=== PATIENT | female | born 1965 | race Caucasian/White ===

== ENCOUNTER 2022-03-15 10:31 | Emergency (ER) | payer BC, SELFPAY ==
[2022-03-15 10:31] VITALS: BP 120/61; PULSE 82; RESP 16; TEMP 37.1; O2SAT 98; BMI 36.6
--- NOTE | 2022-03-15 10:40 | HMH.EDGENADL ---
ED Disposition Clinical Impression: Edema of right upper extremity Disposition: Home, Self-Care Condition on Discharge: Good Additional Instructions: Elevate right arm to reduce swelling. Follow-up with Dr. Avilez this week. Referrals: Tyler Avilez MD [Primary Care Provider] - - Critical Care Critical Care Time: No Attestation: On , the high probability of a clinically significant, sudden or life threatening deterioration of the following system(s) required my full and direct attention, intervention and personal management. The time I documented below is in addition to time spent performing reported procedures but includes the following listed in this critical care notation. Medical Decision Making - Alin Inquiry Pt receiving controlled substance: No Vital Signs: 03/15/22 10:31 03/15/22 11:01 03/15/22 11:46 Temperature 98.8 F 98 F Temperature Source Oral Oral Pulse Rate 79 78 Pulse Rate [Radial] 82 Respiratory Rate 16 16 16 Blood Pressure 127/51 L 144/89 H Blood Pressure [Right Arm] 120/61 Blood Pressure Mean 81 Blood Pressure Mean [Right Arm] 80 Blood Pressure Position Sitting Blood Pressure Position [Right Arm] Sitting 02 Sat by Pulse Oximetry 98 93 L Oxygen Delivery Method Room Air Room Air 03/15/22 12:00 03/15/22 13:46 03/15/22 14:03 Temperature Temperature Source Pulse Rate 79 76 84 Pulse Rate [Radial] Respiratory Rate 16 16 16 Blood Pressure 132/78 141/63 H 162/90 H Blood Pressure [Right Arm] Blood Pressure Mean 96 96 98 Blood Pressure Mean [Right Arm] Blood Pressure Position Blood Pressure Position [Right Arm] 02 Sat by Pulse Oximetry 97 98 98 Oxygen Delivery Method - Lab Data Lab Results 03/15/22 11:26: WBC 9.7, RBC 4.52, Hgb 13.6, Hct 41.9, MCV 92.7, MCH 30.1, MCHC 32.5, RDW 14.1, Plt Count 319, MPV 8.1, Neut % (Auto) 76.0, Lymph % (Auto) 18.0, [place] % (Auto) 4.8, Eos % (Auto) 0.5, Baso % (Auto) 0.7, Neut # (Auto) 7.4, Lymph # (Auto) 1.7, [place] # (Auto) 0.5, Eos # (Auto) 0.1, Baso # (Auto) 0.1 03/15/22 11:26: D-Dimer 0.85 H 03/15/22 11:26: Sodium 143, Potassium 4.1, Chloride 110 H, Carbon Dioxide 27, Anion Gap 10.1, BUN 12, Creatinine 1.20 H, Estimated Creat Clear 83, Estimated GFR 47 L, Est GFR ( Amer) 56 L, Glucose 208 H, Calcium 10.5 H, Total Bilirubin 0.2, AST 28, ALT 26, Alkaline Phosphatase 164 H, NT-Pro-B Natriuret Pep 55.8, Total Protein 7.2, Albumin 3.9, Globulin 3.3 H, Albumin/Globulin Ratio 1.2 03/15/22 11:26: Total Creatine Kinase 29 L, CK-MB (CK-2) < 0.2, CK-MB (CK-2) Rel Index 0.7, Troponin I < 0.01 Result diagrams: 03/15/22 11:26 03/15/22 11:26 - Radiology Data #1 Image(s): Chest, Humerus, Forearm, Wrist, Hand Image Reviewed: Yes I reviewed the patient's radiology image, Yes I have reviewed radiologist's interpretation Preliminary interpretation by me: Chest x-ray: No acute disease Humerus, forearm, wrist, hand: No fractures or dislocations. Degenerative changes with osteophytes at the elbow. No effusion seen. 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 Views: 2 views. COMPARISON: CR XR HUMERUS RT 03/15/2022 11:08 AM FINDINGS: Lungs: Unremarkable. No consolidation. Pleural spaces: Unremarkable. No pleural effusion. No pneumothorax. Heart/Mediastinum: Unremarkable. No cardiomegaly. Bones/joints: Unremarkable. IMPRESSION: No acute findings. 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
--- NOTE | 2022-03-15 10:45 | PC.NURSE ---
RT RADIAL PULSE STRONG, CAP REFILL BRISK, SKIN PINK WARM TO TOUCH
--- NOTE | 2022-03-15 10:46 | XR_ITS ---
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 Views: 3 or more views. COMPARISON: No relevant prior studies available. FINDINGS: Bones/joints: Mild narrowing at the level of the 2nd through 5th PIP and DIP joints. Soft tissues: Mild soft tissue swelling dorsal aspect of the hand. IMPRESSION: 1. No evidence of acute osseous injury. 2. Mild degenerative arthritic type changes 2nd through 5th PIP and DIP joints.
--- NOTE | 2022-03-15 10:47 | XR_ITS ---
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 Views: 3 or more views. COMPARISON: No relevant prior studies available. FINDINGS: Bones/joints: Normal. Soft tissues: Mild soft tissue swelling dorsal aspect of the wrist. IMPRESSION: No evidence of acute osseous injury.
--- NOTE | 2022-03-15 10:55 | XR_ITS ---
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 Views: 2 or more views. COMPARISON: No relevant prior studies available. FINDINGS: Bones/joints: Normal. Soft tissues: Normal. IMPRESSION: No evidence of acute osseous injury.
--- NOTE | 2022-03-15 10:55 | XR_ITS ---
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 Views: 2 views. COMPARISON: No relevant prior studies available. FINDINGS: Bones/joints: Incomplete visualization of focus of calcification adjacent to the radial head. Findings may reflect chronic posttraumatic change. Soft tissues: Soft tissue swelling at the level of the mid forearm with continuation to the level of the wrist. IMPRESSION: 1. No evidence of acute osseous injury. 2. Diffuse soft tissue swelling as described above.
--- NOTE | 2022-03-15 10:56 | XR_ITS ---
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 Views: 2 views. COMPARISON: CR XR HUMERUS RT 03/15/2022 11:08 AM FINDINGS: Lungs: Unremarkable. No consolidation. Pleural spaces: Unremarkable. No pleural effusion. No pneumothorax. Heart/Mediastinum: Unremarkable. No cardiomegaly. Bones/joints: Unremarkable. IMPRESSION: No acute findings.
--- NOTE | 2022-03-15 10:57 | PC.NURSE ---
Rad at bedside
[2022-03-15 11:01] VITALS: BP 127/51; PULSE 79; RESP 16; O2SAT 93
--- NOTE | 2022-03-15 11:28 | PC.NURSE ---
PT TO XRAY PER WHEELCHAIR
[2022-03-15 11:35] LABS: Basophils # 0.1 K/mm3 (0-0.2); Basophils % 0.7 % (0.1-2.0); Eosinophils # 0.1 K/mm3 (0.0-0.4); Eosinophils % 0.5 % (0.1-12.0); Hematocrit 41.9 % (37.0-47.0); Hemoglobin 13.6 g/dL (12.2-16.2); Lymphocytes # 1.7 K/mm3 (0.7-4.5); Mean Corpuscular HGB Conc 32.5 g/dL (31.8-35.4); Mean Corpuscular Hemoglobin 30.1 pg (27.0-31.2); Mean Corpuscular Volume 92.7 fl (81-99); Mean Platelet Volume 8.1 fl (7.4-10.4); Monocytes # 0.5 K/mm3 (0.1-1.0); Monocytes % 4.8 % (1.7-9.3); Neutrophils # 7.4 K/mm3 (1.8-7.8); Platelet Count 319 K/mm3 (142-424); Red Blood Count 4.52 M/mm3 (4.20-5.40); Red Cell Distribution Width 14.1 % (11.5-17.5); White Blood Count 9.7 K/mm3 (4.8-10.8)
[2022-03-15 11:42] LABS: Creatine Kinase 29 U/L (30-135)
[2022-03-15 11:43] LABS: Alanine Aminotransferase 26 U/L (12-78); Albumin Level 3.9 g/dl (3.5-5.0); Albumin/Globulin Ratio 1.2 (1.1-1.8); Alkaline Phosphatase 164 U/L (38-126); Anion Gap 10.1 mEq/L (5-15); Aspartate Amino Transferase 28 U/L (14-36); Bilirubin,Total 0.2 mg/dl (0.2-1.3); Blood Urea Nitrogen 12 mg/dl (7-17); Calcium 10.5 mg/dl (8.4-10.2); Carbon Dioxide 27 mmol/L (22.0-30.0); Chloride 110 mmol/L (98-107); Creatinine Clearance Estimated 83 mL/min (50-200); Estimated Glomerular Filt Rate 47 ml/min (>60); GFR (African American) 56 ML/MIN (>60); Globulin 3.3 g/dL (1.3-3.2); Glucose 208 mg/dl (74-100); Potassium 4.1 mmoL/L (3.5-5.1); Sodium 143 mmol/L (136-145); Total Protein,Serum 7.2 g/dl (6.3-8.2)
[2022-03-15 11:46] VITALS: BP 144/89; PULSE 78; RESP 16; TEMP 36.6; O2SAT 98
[2022-03-15 11:48] LABS: D-Dimer 0.85 ug/mL (0.0-0.5)
[2022-03-15 11:54] LABS: NT Pro Brain Natriuretic Pep. 55.8 pg/mL (0-125)
[2022-03-15 11:59] LABS: CKMB Relative Index 0.7 U/L (0-4.0); Creatine Kinase MB < 0.2 ng/ml (0.0-2.03); Troponin I < 0.01 ng/ml (0.00-0.034)
[2022-03-15 12:00] VITALS: BP 132/78; PULSE 79; RESP 16; O2SAT 97
--- NOTE | 2022-03-15 12:03 | ECG_ITS ---
APPROVED REPORT Exam: Resting ECG HR:77 bpm ECG Measurements Heart Rate 77 AXES [place] 179 P 50 QRSd 96 QRS 8 QT 380 T 0 QTc 411 Conclusion SINUS RHYTHM LOW QRS VOLTAGE IN PRECORDIAL LEADS [QRS DEFLECTION < 1.0 mV IN CHEST LEADS] Poor r wave progression ABNORMAL ECG UNCONFIRMED REPORT Electronically signed by : Star Marino MD 03/16/2022 14:30:11
--- NOTE | 2022-03-15 12:15 | PC.NURSE ---
PT GIVEN DIET TRAY
--- NOTE | 2022-03-15 12:33 | PC.NURSE ---
histopath tech called and advised that she will be here to the facility in approx 1 hr to perform venous doppler.
--- NOTE | 2022-03-15 12:44 | PC.NURSE ---
SPOKE WITH PT'S SISTER (POA) AND GAVE UPDATE
--- NOTE | 2022-03-15 12:56 | CA_ITS ---
FINAL REPORT TECHNIQUE: Sonographic images of the veins of the right upper extremity were obtained from axilla to antecubital fossa. Additionally, images of the internal jugular vein and subclavian vein were also obtained. CLINICAL HISTORY: swelling R arm, elev d-dimer, no known trauma. Right hand swelling since yesterday. DM, obesity. Patient AMS and uncooperative. Scanning was limited due to limited cooperation and comprehension. FINDINGS: The veins of the right upper extremity are compressible from axilla to antecubital fossa. Blood flow is demonstrated by both color and spectral Doppler as well. The internal jugular vein and subclavian vein are also patent. IMPRESSION: Technically limited exam due to limited patient cooperation. No evidence of venous thrombosis of the the right upper extremity. Reviewed, Interpreted and Dictated by Javier Shankar III, MD Transcribed by Shannan Manzanares Authenticated and [facility]
[2022-03-15 13:46] VITALS: BP 141/63; PULSE 76; RESP 16; O2SAT 98
--- NOTE | 2022-03-15 14:01 | PC.NURSE ---
ULTRASOUND AT BEDSIDE
[2022-03-15 14:03] VITALS: BP 162/90; PULSE 84; RESP 16; O2SAT 98
--- NOTE | 2022-03-15 14:22 | PC.NURSE ---
ECHO RELAYED THE PT WAS NEGATIVE OF CLOT
--- NOTE | 2022-03-15 14:27 | PC.NURSE ---
PAGED DR CORONA
--- NOTE | 2022-03-15 14:34 | PC.NURSE ---
ARGELIA SPeaking to francesca at his time
--- NOTE | 2022-03-15 14:51 | PC.NURSE ---
SPOKE WITH PT'S SISTER REGARDING TEST RESULTS
--- NOTE | 2022-03-15 14:57 | PC.NURSE ---
CALLED [facility] TO LET THEM KNOW PT IS READY FOR DISCHARGE. SHE STATED SHE WOULD CALL [facility] TO SEE IF THEY CAN PICK HER UP BECAUSE THEY ARE UNABLE TO AT THIS TIME. THEY WILL CALL BACK AND LET US KNOW.
--- NOTE | 2022-03-15 15:16 | PC.NURSE ---
emily gutierrez is here pedro sadler'mihir
== END 2022-03-15 15:22 | disposition home or self-care (01) ==
PROVIDERS: Emergency Provider Emergency Medicine; PCP Emergency Medicine
DX: R60.0 Localized edema (principal); M79.641 Pain in right hand
CPT/HCPCS: 71046; 73060; 73090; 73110; 73130; 80053; 82550; 82553; 83880; 84484; 85025; 85378; 93005; 93971; 99284

== ENCOUNTER 2022-04-20 18:49 | Inpatient (IN) | payer BC, SELFPAY ==
--- NOTE | 2022-04-20 19:04 | HMH.EDGENADL ---
Discharge Plan Disposition Patient Disposition: Admitted As Inpatient Condition: Good Clinical Impressions Clinical Impression: Delirium due to general medical condition, UTI (urinary tract infection), SIRS (systemic inflammatory response syndrome), Diabetes 1.5, managed as type 2, Obesity, Bipolar 1 disorder Discharge ED Provider: Bruno Salgado General Adult HPI <Bruno Salgado MD - Last Filed: 04/25/22 08:11> General Chief complaint: Altered Mental Status Stated complaint: ams Time Seen by Provider: 04/20/22 19:05 Mode of Arrival: EMS Limitations: Altered Mental Status History of Present Illness HPI narrative: 56-year-old female from assisted living facility presents with report of altered mental status. History is limited from the patient due to altered mental status, she seems somewhat listless, awakens and responds appropriately to name but does not answer other questions. I am not aware of her baseline mental status EMS not available to relay further history as told by the facility. She does not exhibit any clear focal deficits, onset of symptoms is not known. There were no treatments prior to this visit Related Data Home Medications Medication Instructions Recorded Confirmed amlodipine 5 mg tablet (Norvasc) 5 mg PO DAILY blood pressure 04/21/22 04/21/22 benztropine 1 mg tablet 1 mg PO DAILY Tremors 04/21/22 04/21/22 benztropine 2 mg tablet 2 mg PO HS Tremors 04/21/22 04/21/22 cyanocobalamin (vitamin B-12) 500 500 mcg PO DAILY Supplement 04/21/22 04/21/22 mcg tablet dulaglutide 1.5 mg/0.5 mL 1.5 mg SQ WEEKLY Diabetes 04/21/22 04/21/22 subcutaneous pen injector (Trulicity) ergocalciferol (vitamin D2) 1,250 50,000 unit PO WEEKLY Supplement 04/21/22 04/21/22 mcg (50,000 unit) capsule (Vitamin D2) fluvoxamine 100 mg tablet 100 mg PO TID ocd/depression 04/21/22 04/21/22 glipizide 5 mg tablet 5 mg PO BID Diabetes 04/21/22 04/21/22 haloperidol 10 mg tablet 10 mg PO TID depression/behavior 04/21/22 04/21/22 lithium carbonate 150 mg capsule 150 mg PO BID mood 04/21/22 04/21/22 loratadine 10 mg tablet (Claritin) 10 mg PO DAILY Allergy symptoms 04/21/22 04/21/22 melatonin 10 mg capsule 10 mg PO HS PRN Sleep 04/21/22 04/21/22 metformin 500 mg tablet 500 mg PO DAILY Diabetes 04/21/22 04/21/22 metoprolol tartrate 25 mg tablet 25 mg PO BID blood pressure 04/21/22 04/21/22 olanzapine 20 mg tablet 20 mg PO HS mood 04/21/22 04/21/22 omega-3 fatty acids 2,000 mg PO BID Cholesterol 04/21/22 04/21/22 trazodone 100 mg tablet 100 mg PO HS sleep 04/21/22 04/21/22 Previous Rx's Medication Instructions Recorded lorazepam 0.5 mg tablet (Ativan) 0.5 mg PO BID #60 tabs 04/07/22 cefdinir 300 mg capsule 300 mg PO BID 12 days #24 caps 04/23/22 Allergies Allergy/AdvReac Type Severity Reaction Status Date / Time bee venom protein (honey bee) Allergy Verified 03/15/22 10:46 honey Allergy Verified 03/15/22 10:46 <Tyler Avilez MD - Last Filed: 04/20/22 23:07> General Source of Information: Patient, EMS and Medical Record History of Present Illness Onset (ago): hour(s) Severity: moderate PFSH <Bruno Salgado MD - Last Filed: 04/25/22 08:11> PFSH Social History Smoking Status: Current some day smoker alcohol intake: never current occupational status: unemployed Travel in the last 8 weeks: None <Brnuo Salgado MD - Last Filed: 04/25/22 08:11> ROS Obtained: Yes unobtainable due to mental status Physical Exam <Bruno Salgado MD - Last Filed: 04/25/22 08:11> General General appearance: in no apparent distress Head Head exam: atraumatic and normocephalic Eye Eye exam: Present normal appearance and PERRL ENT ENT exam: Present normal exam Neck Neck exam: Present normal inspection Chest Chest inspection: Present normal inspection and symmetric chest wall rise Respiratory Respiratory exam: Present normal lung sounds bilaterally; Absent respiratory
--- NOTE | 2022-04-20 19:05 | XR_ITS ---
PROCEDURE INFORMATION: Exam: XR Chest Exam date and time: 04/20/2022 7:42 PM Age: 56 years old Clinical indication: Shortness of breath; Additional info: Sob/cp TECHNIQUE: Imaging protocol: Radiologic exam of the chest. Views: 1 view. COMPARISON: CR XR CHEST 2V 03/15/2022 11:33 AM FINDINGS: Lungs: Hazy density left lung base. Pleural spaces: Unremarkable. No pleural effusion. No pneumothorax. Heart/Mediastinum: Unremarkable. No cardiomegaly. Bones/joints: Unremarkable. IMPRESSION: Left pleural effusion.
--- NOTE | 2022-04-20 19:07 | CT_ITS ---
PROCEDURE INFORMATION: Exam: CT Head Without Contrast Exam date and time: 04/20/2022 7:22 PM Age: 56 years old Clinical indication: Altered mental status/memory loss; Additional info: AMS TECHNIQUE: Imaging protocol: Computed tomography of the head without contrast. Radiation optimization: All CT scans at this facility use at least one of these dose optimization techniques: automated exposure control; mA and/or kV adjustment per patient size (includes targeted exams where dose is matched to clinical indication); or iterative reconstruction. COMPARISON: No relevant prior studies available. FINDINGS: Brain: Normal. No hemorrhage. Unremarkable white matter. No mass effect. Cerebral ventricles: No ventriculomegaly. Paranasal sinuses: Mucosal thickening. No fluid levels. Mastoid air cells: Visualized mastoid air cells are well aerated. Bones/joints: Unremarkable. No acute fracture. Soft tissues: Unremarkable. IMPRESSION: No acute intracranial abnormality.
--- NOTE | 2022-04-20 19:40 | ECG_ITS ---
APPROVED REPORT Exam: Resting ECG HR:105 bpm ECG Measurements Heart Rate 105 AXES [place] 162 P 58 QRSd 90 QRS 63 QT 337 T 0 QTc 398 Conclusion SINUS TACHYCARDIA POSSIBLE RIGHT VENTRICULAR CONDUCTION DELAY [RSR (QR) IN V1/V2] NONSPECIFIC T-WAVE ABNORMALITY ABNORMAL RHYTHM ECG UNCONFIRMED REPORT Electronically signed by : Star aMrino MD 04/21/2022 21:09:13
[2022-04-20 19:55] VITALS: BP 124/84; PULSE 125; RESP 24; TEMP 39.7; O2SAT 97; BMI 34.9
[2022-04-20 20:12] VITALS: BMI 36.0
[2022-04-20 20:35] LABS: Coronavirus 19, PCR Not Detected (NotDetected); Influenza A, PCR Not Detected (NotDetected); Influenza B, PCR Not Detected (NotDetected)
[2022-04-20 20:48] LABS: Basophils # 0.2 K/mm3 (0-0.2); Basophils % 0.8 % (0.1-2.0); Eosinophils # 0.2 K/mm3 (0.0-0.4); Eosinophils % 0.7 % (0.1-12.0); Hematocrit 36.2 % (37.0-47.0); Hemoglobin 12.2 g/dL (12.2-16.2); Lymphocytes # 1.1 K/mm3 (0.7-4.5); Lymphocytes % 5.3 % (10-50); Mean Corpuscular HGB Conc 33.7 g/dL (31.8-35.4); Mean Corpuscular Hemoglobin 30.1 pg (27.0-31.2); Mean Corpuscular Volume 89.3 fl (81-99); Mean Platelet Volume 8.7 fl (7.4-10.4); Monocytes # 1.1 K/mm3 (0.1-1.0); Monocytes % 5.5 % (1.7-9.3); Neutrophils # 17.5 K/mm3 (1.8-7.8); Neutrophils % 87.6 % (37.0-80.0); Platelet Count 376 K/mm3 (142-424); Red Blood Count 4.05 M/mm3 (4.20-5.40); Red Cell Distribution Width 13.6 % (11.5-17.5); White Blood Count 19.9 K/mm3 (4.8-10.8)
[2022-04-20 20:51] LABS: MANUAL DIFFERENTIAL MANUAL DIFFERENTIAL (MANUAL DIFF)
[2022-04-20 20:53] LABS: Microscopic, Urine URINE MICROSCOPIC (MICROSCOPIC)
--- NOTE | 2022-04-20 20:54 | PC.NURSE ---
PATIENT VERY CONFUSED AND UNABLE TO FOLLOW COMMANDS, MULTIPLE ATTEMPTS TO GET UP. PATIENT MOVED TO ROOM 6 TO BE VIEWED BY STAFF.
[2022-04-20 20:55] LABS: Appearance,Urine CLOUDY (Clear); Bilirubin,Urine Negative (Negative); Blood, Urine Negative (Negative); Color,Urine YELLOW (Yellow); Glucose,Urine (UA) Negative (Negative); Ketones,Urine Negative (Negative); Leukocyte Esterase,Urine 1+ (Negative); Nitrate,Urine Negative (Negative); Protein,Urine 1+ (Negative); Specific Gravity, Urine 1.015 (1.005-1.030)
[2022-04-20 20:56] LABS: Chloride 105 mmol/L (98-107)
[2022-04-20 20:57] LABS: Potassium 4.4 mmoL/L (3.5-5.1); Sodium 141 mmol/L (136-145)
[2022-04-20 20:59] LABS: Alanine Aminotransferase 27 U/L (12-78); Alkaline Phosphatase 144 U/L (38-126); Ammonia 21 umol/L (9-30); Anion Gap 15.4 mEq/L (5-15); Aspartate Amino Transferase 36 U/L (14-36); Bilirubin,Total 0.6 mg/dl (0.2-1.3); Blood Urea Nitrogen 28 mg/dl (7-17); Carbon Dioxide 25 mmol/L (22.0-30.0); Creatinine Clearance Estimated 65 mL/min (50-200); Estimated Glomerular Filt Rate 33 ml/min (>60); GFR (African American) 40 ML/MIN (>60)
[2022-04-20 21:00] LABS: Albumin/Globulin Ratio 1.1 (1.1-1.8); Globulin 3.8 g/dL (1.3-3.2); Glucose 242 mg/dl (74-100); Total Protein,Serum 7.8 g/dl (6.3-8.2)
--- NOTE | 2022-04-20 21:15 | CT_ITS ---
PROCEDURE INFORMATION: Exam: CT Abdomen And Pelvis With Contrast Exam date and time: 04/20/2022 9:32 PM Age: 56 years old Clinical indication: Abdominal tenderness and other: Foul urine; Additional info: Foul urine, abd tender TECHNIQUE: Imaging protocol: Computed tomography of the abdomen and pelvis with contrast. Radiation optimization: All CT scans at this facility use at least one of these dose optimization techniques: automated exposure control; mA and/or kV adjustment per patient size (includes targeted exams where dose is matched to clinical indication); or iterative reconstruction. Contrast material: ISOVUE; Contrast volume: 75 ml; Contrast route: IV; COMPARISON: CR XR CHEST PORTABLE 04/20/2022 7:42 PM FINDINGS: Heart: Heart is enlarged. Coronary artery calcifications. Diaphragm: Sliding hiatal hernia. Liver: Normal. No mass. Gallbladder and bile ducts: Gallbladder is surgically absent. No pathologic dilation of the biliary tree. Pancreas: Normal. No ductal dilation. Spleen: Spleen is enlarged measuring over 13.5 cm in length but without focal lesion. Adrenal glands: Normal. No mass. Kidneys and ureters: Normal. No hydronephrosis. Stomach and bowel: Excessive stool within the transverse and right hemicolon. Appendix: No evidence of appendicitis. Intraperitoneal space: Unremarkable. No free air. No significant fluid collection. Vasculature: Unremarkable. No abdominal aortic aneurysm. Lymph nodes: Unremarkable. No enlarged lymph nodes. Urinary bladder: A Roblero catheter is present within the urinary bladder. Air within the urinary bladder could be due to recent instrumentation or gas-forming bacteria. Mucosal thickening in the urinary bladder suggests chronic infectious or interstitial cystitis with malignancy to be excluded. Follow-up cystoscopy is recommended. Reproductive: Unremarkable as visualized. Bones/joints: Skeletal structures are negative for a evidence of aggressive process or acute fracture. There are diffuse degenerative changes. Soft tissues: Unremarkable. IMPRESSION: 1. A Roblero catheter is present within the urinary bladder. Air within the urinary bladder could be due to recent instrumentation or gas-forming bacteria. Mucosal thickening in the urinary bladder suggests chronic infectious or interstitial cystitis with malignancy to be excluded. Follow-up cystoscopy is recommended. 2. Excessive stool within the transverse and right hemicolon. 3. Spleen is enlarged measuring over 13.5 cm in length but without focal lesion. 4. Gallbladder is surgically absent. No pathologic dilation of the biliary tree. 5. Cardiomegaly and coronary artery calcifications. 6. Sliding hiatal hernia.
--- NOTE | 2022-04-20 21:15 | XR_ITS ---
PROCEDURE INFORMATION: Exam: XR Chest Exam date and time: 04/20/2022 9:54 PM Age: 56 years old Clinical indication: Fever TECHNIQUE: Imaging protocol: Radiologic exam of the chest. Views: 1 view. COMPARISON: CR XR CHEST PORTABLE 04/20/2022 7:42 PM FINDINGS: Lungs: Unremarkable. No consolidation. Pleural spaces: Unremarkable. No pleural effusion. No pneumothorax. Heart/Mediastinum: Heart is enlarged. Bones/joints: Acromioclavicular arthropathy. IMPRESSION: Cardiomegaly without evidence of acute cardiopulmonary process.
[2022-04-20 21:17] LABS: Troponin I < 0.01 ng/ml (0.00-0.034)
[2022-04-20 21:52] LABS: Lactic Acid 1.7 mmol/L (0.7-2.1)
[2022-04-20 21:53] LABS: Hemoglobin A1C 6.4 % (4.0-6.0)
[2022-04-20 21:55] LABS: Bacteria,Urine 4+ /lpf
[2022-04-20 22:15] LABS: Lymphocytes % 11 % (10-50); Monocytes % 4 % (2-9); Neutrophils % 85 % (42-76); Ovalocytes 1+; Platelet Estimate Normal; Total Cells Counted 100
--- NOTE | 2022-04-20 22:23 | PC.NURSE ---
pt's family called, gave update on pt's POC and admission
--- NOTE | 2022-04-20 22:56 | PC.NURSE ---
PATIENT ADMITTED TO [address] HIGGINS WITH DX OF UTI.
[2022-04-20 23:18] VITALS: BMI 65.2
[2022-04-20 23:51] LABS: Troponin I < 0.01 ng/ml (0.00-0.034)
--- NOTE | 2022-04-20 23:55 | PC.NURSE ---
PT ARRIVED TO FLOOR VIA STRETCHER AT THIS TIME
[2022-04-21] VITALS: BP 125/58; PULSE 97; RESP 18; TEMP 37.3; O2SAT 94
--- NOTE | 2022-04-21 00:05 | CA_ITS ---
APPROVED REPORT EXAM: Comprehensive 2D, Doppler, and color-flow Echocardiogram Auto Claim Representative: Karla Miller, RT(R) Ht: 5 ft 7 in Wt: 230lbs BSA: 2.15 BP: 124/84 mmHg Indications: cardiomegaly, murmur, AMS, bipolar, UTI, febrile, patient uncooperative limited scan. 2D Dimensions LVOT 2.08 cm (M/F) 1.5-2.5 M-Mode Dimensions RVDd 2.32 cm (0.9-2.6) LA Diam 2.10 cm (1.9-4.0) LVDd 4.40 cm (3.5-5.7) Ao Diam 2.79 cm (2.0-3.7) LVDs 3.15 cm (3.5-5.7) IVSd 1.00 cm (0.6-1.1) PWd 0.64 cm (0.6-1.1) EF (Teich) 55.10% FS 28.40% EDV (Teich) 87.70 mL ESV (Teich) 39.40 mL LV Diastology E Decel Time 150.00 (160-240 msec) E/A Ratio 0.8 Mitral Valve MV E Max Fabian. 73.00 (40-130 cm/s) MV A Velocity 88.00 (40-130 cm/s) E/A Ratio 0.83 MV Decel. Time 150.00 (160-240 ms) MV PHT 44.00 ms Left Ventricle Left atrium is normal size, left ventricle is normal size, estimated ejection fraction 55% with no regional wall motion abnormality, Doppler evidence of impaired LV relaxation seen. Right Ventricle Right atrium and right ventricle are normal size and contractility. Aortic Valve Aortic valve is not well visualized, Doppler is not indicated for aortic stenosis aortic insufficiency. Mitral Valve Mitral valve grossly normal and there is trace mitral regurgitation. Tricuspid Valve Tricuspid valve grossly normal, there is trace tricuspid regurgitation, tricuspid regurgitation jet velocity is inadequate for calculation of the right ventricular systolic pressure. Pulmonic Valve Pulmonic valve is poorly visualized. Great Vessels Aortic root is normal size. Inferior vena cava is poorly visualized. Pericardium No significant pericardial effusion noted. Conclusion 1. Technically difficult study because of the patient factors and poor acoustic windows. 2. Normal left ventricular size preserved left ventricular systolic function, estimated ejection fraction 55% with no regional wall motion abnormality, Doppler evidence of impaired relaxation seen. 3. Trace mitral and tricuspid regurgitation. 4. No significant pericardial effusion. 5. Inferior vena cava is poorly visualized. Electronically signed by : Gabriel Mohan MD 04/21/2022 18:21:42
[2022-04-21 00:46] VITALS: BP 120/81; PULSE 73; RESP 16; TEMP 36.6; O2SAT 99
[2022-04-21 04:00] VITALS: BP 128/63; PULSE 97; RESP 18; TEMP 36.9; O2SAT 90
--- NOTE | 2022-04-21 04:19 | PC.NURSE ---
pt was admitted this shift. she is A&O to person. pt has an abrasion to the left knee that she says was the result of a fall before coming in. wilkinson cath is in place and draining adequately. CB is in reach. Bed alarm is on and functioning.
--- NOTE | 2022-04-21 06:28 | PC.NURSE ---
left knee left inner calf
[2022-04-21 07:17] LABS: Basophils # 0.1 K/mm3 (0-0.2); Monocytes # 1.2 K/mm3 (0.1-1.0)
--- NOTE | 2022-04-21 07:34 | EXP.PHA.VTE ---
[facility] Pharmacy VTE Monitoring Patient Demographics Admission date: 04/21/22 Report Date: 04/21/22 Time: 07:34 Patient Allergies bee venom protein (honey bee) Allergy (Verified 03/15/22 10:46) honey Allergy (Verified 03/15/22 10:46) Height: 1.7 m Weight: 188.694 kg Current Active Problems (Updated 04/20/22 @ 23:07 by Tyler Avilez MD) Delirium due to general medical condition (Acute) UTI (urinary tract infection) (Acute) SIRS (systemic inflammatory response syndrome) (Acute) Diabetes 1.5, managed as type 2 (Acute) Obesity (Acute) Bipolar 1 disorder (Acute) VTE Risk Labs: VTE Related Lab Results Hgb 12.2 g/dL (12.2-16.2) 04/20/22 20:35 Hct 36.2 % (37.0-47.0) L 04/20/22 20:35 Plt Count 376 K/mm3 (142-424) 04/20/22 20:35 BUN 28 mg/dl (7-17) H 04/20/22 20:35 Creatinine 1.60 mg/dl (0.52-1.04) H 04/20/22 20:35 Estimated Creat Clear 65 mL/min (50-200) 04/20/22 20:35 Clinical Trial Participant: No Prophylaxis VTE Prophylaxis Ordered?: Yes Types of VTE Prophylaxis: TEDS Knee High
[2022-04-21 07:41] LABS: Anion Gap 11.6 mEq/L (5-15); Blood Urea Nitrogen 27 mg/dl (7-17); Calcium 9.3 mg/dl (8.4-10.2); Carbon Dioxide 27 mmol/L (22.0-30.0); Chloride 107 mmol/L (98-107); Creatinine Clearance Estimated 40 mL/min (50-200); Estimated Glomerular Filt Rate 36 ml/min (>60); GFR (African American) 44 ML/MIN (>60); Glucose 147 mg/dl (74-100); Potassium 3.6 mmoL/L (3.5-5.1); Sodium 142 mmol/L (136-145)
[2022-04-21 07:48] LABS: Basophils % 0.5 % (0.1-2.0); Eosinophils # 0.1 K/mm3 (0.0-0.4); Eosinophils % 0.3 % (0.1-12.0); Hematocrit 31.7 % (37.0-47.0); Lymphocytes # 2.5 K/mm3 (0.7-4.5); Lymphocytes % 15.3 % (10-50); Mean Corpuscular Hemoglobin 30.7 pg (27.0-31.2); Mean Corpuscular Volume 90.4 fl (81-99); Mean Platelet Volume 8.5 fl (7.4-10.4); Monocytes % 7.4 % (1.7-9.3); Neutrophils # 12.6 K/mm3 (1.8-7.8); Neutrophils % 76.5 % (37.0-80.0); Platelet Count 318 K/mm3 (142-424); Red Blood Count 3.51 M/mm3 (4.20-5.40); Red Cell Distribution Width 13.7 % (11.5-17.5); White Blood Count 16.5 K/mm3 (4.8-10.8)
[2022-04-21 07:58] LABS: Hemoglobin 10.8 g/dL (12.2-16.2); MANUAL DIFFERENTIAL MANUAL DIFFERENTIAL (MANUAL DIFF)
[2022-04-21 08:00] VITALS: BP 138/64; PULSE 104; RESP 16; TEMP 36.7; O2SAT 95
[2022-04-21 08:26] LABS: Chol/HDL Ratio 5.1 (1-3.5); Cholesterol 122 mg/dl (140-200); HDL Cholesterol 24 mg/dl (40-60); Magnesium 1.5 mg/dl (1.6-2.3); Triglycerides 108 mg/dl (30-150); VLDL Cholesterol 22 mg/dL (0-40)
[2022-04-21 08:37] LABS: Direct LDL Cholesterol 66.24 mg/dL (100-129)
--- NOTE | 2022-04-21 08:56 | HMH.PHAINT1 ---
Pharmacy Intervention Comments: home medication list verified using list from [facility]
--- NOTE | 2022-04-21 09:36 | EXP.HP ---
History of Present Illness *Admission Date: 04/21/22 *Reason for visit:: Altered mental status *History of present illness: 56-year-old female patient presenting to the [facility] emergency department from [facility]. They reported their altered mental status. In the emergency department white blood cell count 19.9, heart rate 125, temperature 103.5, and urinalysis revealing 1+ leukocytes and 4+ bacteria. Patient lying in bed now pleasantly confused, and stating I feel good. There is a large scabbed wound to her left knee which is red, warm, edematous. CT of the abdomen pelvis revealed air within the urinary bladder possibly due to recent catheterization or gas-forming bacteria. Mucosal thickening in the bladder suggesting chronic infectious or interstitial cystitis with malignancy to be excluded follow-up cystoscopy is recommended. Urology consulted [facility] Social History (Updated 04/21/22 @ 00:16 by Aniya Moya RN) Smoking Status: Current some day smoker alcohol intake: never current occupational status: unemployed Travel in the last 8 weeks: None Review of Systems Review of Systems Review of systems:: unable to obtain Review of systems (narrative): review of systems unable to obtain, patient pleasantly confused Meds Home Medications and Allergies Home Medications Medication Instructions Recorded Confirmed Type lorazepam 0.5 mg tablet (Ativan) 0.5 mg PO BID #60 tabs 04/07/22 04/21/22 Rx amlodipine 5 mg tablet (Norvasc) 5 mg PO DAILY blood pressure 04/21/22 04/21/22 History benztropine 1 mg tablet 1 mg PO DAILY Tremors 04/21/22 04/21/22 History benztropine 2 mg tablet 2 mg PO HS Tremors 04/21/22 04/21/22 History cyanocobalamin (vitamin B-12) 500 500 mcg PO DAILY Supplement 04/21/22 04/21/22 History mcg tablet dulaglutide 1.5 mg/0.5 mL 1.5 mg SQ WEEKLY Diabetes 04/21/22 04/21/22 History subcutaneous pen injector (Trulicity) ergocalciferol (vitamin D2) 1,250 50,000 unit PO WEEKLY Supplement 04/21/22 04/21/22 History mcg (50,000 unit) capsule (Vitamin D2) fluvoxamine 100 mg tablet 100 mg PO TID ocd/depression 04/21/22 04/21/22 History glipizide 5 mg tablet 5 mg PO BID Diabetes 04/21/22 04/21/22 History haloperidol 10 mg tablet 10 mg PO TID depression/behavior 04/21/22 04/21/22 History lithium carbonate 150 mg capsule 150 mg PO BID mood 04/21/22 04/21/22 History loratadine 10 mg tablet (Claritin) 10 mg PO DAILY Allergy symptoms 04/21/22 04/21/22 History melatonin 10 mg capsule 10 mg PO HS PRN Sleep 04/21/22 04/21/22 History metformin 500 mg tablet 500 mg PO DAILY Diabetes 04/21/22 04/21/22 History metoprolol tartrate 25 mg tablet 25 mg PO BID blood pressure 04/21/22 04/21/22 History olanzapine 20 mg tablet 20 mg PO HS mood 04/21/22 04/21/22 History omega-3 fatty acids 2,000 mg PO BID Cholesterol 04/21/22 04/21/22 History trazodone 100 mg tablet 100 mg PO HS sleep 04/21/22 04/21/22 History New Prescriptions to Start Prescriptions: Allergies Allergy/AdvReac Type Severity Reaction Status Date / Time bee venom protein (honey bee) Allergy Verified 03/15/22 10:46 honey Allergy Verified 03/15/22 10:46 Exam Data for Last 24 hours Vital signs and Labs for Last 24 Hours: Temp Pulse Resp BP Pulse Ox 98.5 F 97 H 18 128/63 90 L 04/21/22 04:00 04/21/22 04:00 04/21/22 04:00 04/21/22 04:00 04/21/22 04:00 Laboratory Results - last 24 hr 04/20/22 20:30: SARS-CoV-2 (PCR) Not detected, Influenza A Untype (PCR) Not detected, Influenza Type B (PCR) Not detected 04/20/22 20:35: WBC 19.9 H, RBC 4.05 L, Hgb 12.2, Hct 36.2 L, MCV 89.3, MCH 30.1, MCHC 33.7, RDW 13.6, Plt Count 376, MPV 8.7, Neut % (Auto) 87.6 H, Lymph % (Auto) 5.3 L, Mcn[place] % (Auto) 5.5, Eos % (Auto) 0.7, Baso % (Auto) 0.8, Neut # (Auto) 17.5 H, Lymph # (Auto) 1.1, Mcn[place] # (Auto) 1.1 H, Eos # (Auto) 0.2, Baso # (Auto) 0.2, Total Counted 100, Neutrophils % (Manual) 85 H, Lymphocytes % (Manu
--- NOTE | 2022-04-21 09:55 | HMH.PTEV ---
Physical Therapy Evaluation Rehab PT IP Evaluation Start: 04/21/22 08:35 Freq: ONCE Status: Active Protocol: Document 04/21/22 09:52 SANTOSH (Rec: 04/21/22 09:55 PHORBHARAT [id number]) Subjective/History History History 56 yowf adm to [facility] with UTI. SHe reports she was independently mobile prior to adm and lives at personal correction. Subjective Subjective Pt with no c/o this am. She appears to be at her baseline. Rehab PT IP Eval Objective Appearance Patient Behavior Appropriate,Confused Patient Orientation Person Difficulty following instructions mild Speech Pattern Clear,Delayed,Patient Baseline Ambulation Patient Able to Ambulate Yes Ambulation Observation IP General Gait Pattern Observation Wide Based Gait Ambulation Distance (feet) 20 Ambulation Assistive Device None Ambulation Ability Supervision/Stand by Balance Ability to Arise Able, uses arms to help Sitting Balance Steady, safe Standing Balance Steady, wide stance Dynamic Sitting Balance Ability Good Dynamic Standing Balance Ability Good Transfers Bed Transfer Ability Supervision/Stand by Chair Transfer Ability Supervision/Stand by Sit to Stand Bed Transfer Ability Supervision/Stand by Sit to Stand Chair Transfer Ability Supervision/Stand by Rehab PT IP prob,goals,plan Problems Date of Evaluation: 04/21/22 Discharge Plan PT Discharge Plan Pt appears to be at baseline for all mobility at this time. No current inpatient therapy needs. G -code Required No Eval Complexity Eval Charge Codes 73572 - Moderate Complexity PHYSICIAN CERTIFICATION: I certify the specified therapy services for Sandy Stone are required, authorized, and reviewed every 30 days.
--- NOTE | 2022-04-21 10:01 | SW/DCPLANNER ---
Addendum entered by [facility] 04/23/22 11:22: The plan for this patient at this time is to cancel discharge and order a second set of blood cultures prior to discharge per MD. Addendum entered by [facility] 04/23/22 09:06: This patient will no longer need IV antibiotics at discharge and can return to [facility] on PO antibitoics per MD. The plan is for patient to return to [facility] today. I will update patient, family, O[facility] and Gee Lucas. Addendum entered by [facility] 04/22/22 15:00: [facility] Venegas is coming to evaluate this patient. Addendum entered by [facility] 04/22/22 13:24: [facility] is not able to accept this patient. Patient information has been faxed to [facility] Venegas. Addendum entered by [facility] 04/22/22 09:43: Patient will need IV antibiotics at time of discharge. I called and discussed situation with patient's sister and she is agreeable for [facility] level of care in [place]. Patient information has been faxed to [facility] at this time. I will continue to update MD, patient/family and Gee Lucas. Patient is medically stable for discharge. Original Note: This patient currently resides at [facility]: I have updated Ryan that patient could potentially return tomorrow. I will continue to follow up with Gee Lucas regarding this patient.
--- NOTE | 2022-04-21 10:12 | PC.NURSE ---
Addendum entered by Marisol Marsh RN 04/21/22 13:15: PATIENT HAD NO CONCERNS OR QUESTIONS, PATIENT WAS GIVEN DRINK AND SNACK. CALL LIGHT GIVEN TO PATIENT AND EDUCATION DONE ON HOW TO USE IT FOR CALLING NURSE AND TV. ENCOURAGED HER TO RING OUT. BED ALARM ON Original Note: md aspirated fluid from l knee and sent it down for culture.
--- NOTE | 2022-04-21 10:38 | HMH.OTEV ---
OT Inpatient Evaluation Rehab OT IP Evaluation Start: 04/21/22 08:36 Freq: ONCE Status: Complete Protocol: Document 04/21/22 10:06 VERNONBELLAKeyonna (Rec: 04/21/22 10:38 [facility] [id number]) Rehab OT IP Assessment Subjective History Pt oriented x 2 on arrival. Pt agreeable to engage in therapy evaluation. Pt admitted via ED on 04/20/22 due to altered mental status. Pt reports prior to being in the hospital, pt lived at personal shelter. Pt claims she was independent with dressing, bathing, and feeding. Pt was dependent upon staff to complete IADLs. She did not use a walker or cane during ambulation. Subjective I can do fine on my own. Objective Patient Orientation Person,Birthday Upper Extremity Gross ROM WFL Bed Mobility bed mobility-scooting,bed mobility - supine/sit,bed mobility - rolling Assist Level Supervision/Stand by Transfer Training Sit/Stand Transfer Assist Level Supervision/Stand by Chair Transfer Ability Supervision/Stand by Chair Transfer Technique Sit to/from Ambulatory Chair Transfer Assistive Devices None Rehab OT IP prob,goals,plan Problems Date of Evaluation: 04/21/22 Rehab Potential Rehab Potential Innapropriate for Skilled Therapy Discharge Plan OT Discharge Plan At this time, pt appears to be at baseline with ADL independence and functional transfers. Pt can return back to personal shelter once medically stable per physican. Eval Complexity Eval Charge Codes 09771 - Moderate Complexity G Codes G -code Required No PHYSICIAN CERTIFICATION: I certify the specified therapy services for Sandy Zamudio are required, authorized, and reviewed every 30 days.
[2022-04-21 11:12] LABS: POC Glucose,Bedside 201 (70-110)
[2022-04-21 11:34] LABS: Eosinophils % 1 % (0-3); Lymphocytes % 18 % (10-50); Monocytes % 8 % (2-9); Neutrophils % 73 % (42-76); RBC Morphology Normal; Total Cells Counted 100
[2022-04-21 11:35] LABS: Platelet Estimate Normal
--- NOTE | 2022-04-21 15:48 | EXP.SURG.CON ---
History of Present Illness *Admission Date: 04/21/22 *History of present illness: Patient is a 56-year-old white female who is a resident of [facility]. She presented to the emergency room yesterday with altered mental status. She was evaluated and admitted due to the high temperature of 103.5. Her pulse rate was 125. Her white count was 19.9 and her creatinine was 1.6. Her urinalysis showed 1+ leukocytes and 4+ bacteria. Urine culture is currently pending. Her hemoglobin A1c was 6.4. CT scan was obtained which showed normal kidneys and ureters. There was air within the urinary bladder and excessive stool within the transverse and right hemicolon. A Roblero catheter was removed last evening. The nurse reports that she has been voiding adela urine with a good stream. She is currently on antibiotics. Her white count did improve to 16.5 today. The radiologist also thought there was some mucosal thickening in the urinary bladder suggesting chronic infectious or interstitial cystitis or malignant etiology. [facility] Social History (Updated 04/21/22 @ 00:16 by Aniya Moya RN) Smoking Status: Current some day smoker alcohol intake: never current occupational status: unemployed Travel in the last 8 weeks: None Review of Systems Review of Systems Review of systems:: pertinent systems reviewed and negative unless documented below Meds Home Medications and Allergies Home Medications Medication Instructions Recorded Confirmed Type lorazepam 0.5 mg tablet (Ativan) 0.5 mg PO BID #60 tabs 04/07/22 04/21/22 Rx amlodipine 5 mg tablet (Norvasc) 5 mg PO DAILY blood pressure 04/21/22 04/21/22 History benztropine 1 mg tablet 1 mg PO DAILY Tremors 04/21/22 04/21/22 History benztropine 2 mg tablet 2 mg PO HS Tremors 04/21/22 04/21/22 History cyanocobalamin (vitamin B-12) 500 500 mcg PO DAILY Supplement 04/21/22 04/21/22 History mcg tablet dulaglutide 1.5 mg/0.5 mL 1.5 mg SQ WEEKLY Diabetes 04/21/22 04/21/22 History subcutaneous pen injector (Trulicity) ergocalciferol (vitamin D2) 1,250 50,000 unit PO WEEKLY Supplement 04/21/22 04/21/22 History mcg (50,000 unit) capsule (Vitamin D2) fluvoxamine 100 mg tablet 100 mg PO TID ocd/depression 04/21/22 04/21/22 History glipizide 5 mg tablet 5 mg PO BID Diabetes 04/21/22 04/21/22 History haloperidol 10 mg tablet 10 mg PO TID depression/behavior 04/21/22 04/21/22 History lithium carbonate 150 mg capsule 150 mg PO BID mood 04/21/22 04/21/22 History loratadine 10 mg tablet (Claritin) 10 mg PO DAILY Allergy symptoms 04/21/22 04/21/22 History melatonin 10 mg capsule 10 mg PO HS PRN Sleep 04/21/22 04/21/22 History metformin 500 mg tablet 500 mg PO DAILY Diabetes 04/21/22 04/21/22 History metoprolol tartrate 25 mg tablet 25 mg PO BID blood pressure 04/21/22 04/21/22 History olanzapine 20 mg tablet 20 mg PO HS mood 04/21/22 04/21/22 History omega-3 fatty acids 2,000 mg PO BID Cholesterol 04/21/22 04/21/22 History trazodone 100 mg tablet 100 mg PO HS sleep 04/21/22 04/21/22 History New Prescriptions to Start Prescriptions: Allergies Allergy/AdvReac Type Severity Reaction Status Date / Time bee venom protein (honey bee) Allergy Verified 03/15/22 10:46 honey Allergy Verified 03/15/22 10:46 Exam (Inpt) Vital signs and Labs for Last 24 Hours: Temp Pulse Resp BP Pulse Ox 98.1 F 104 H 16 138/64 95 04/21/22 08:00 04/21/22 08:00 04/21/22 08:00 04/21/22 08:00 04/21/22 08:00 Laboratory Results - last 24 hr 04/20/22 20:30: SARS-CoV-2 (PCR) Not detected, Influenza A Untype (PCR) Not detected, Influenza Type B (PCR) Not detected 04/20/22 20:35: WBC 19.9 H, RBC 4.05 L, Hgb 12.2, Hct 36.2 L, MCV 89.3, MCH 30.1, MCHC 33.7, RDW 13.6, Plt Count 376, MPV 8.7, Neut % (Auto) 87.6 H, Lymph % (Auto) 5.3 L, [place] % (Auto) 5.5, Eos % (Auto) 0.7, Baso % (Auto) 0.8, Neut # (Auto) 17.5 H, Lymph # (Auto) 1.1, [place] # (Auto) 1.1 H, Eos # (Auto) 0.2, Baso # (Auto) 0.2, Tota
[2022-04-21 16:00] VITALS: BP 131/73; PULSE 101; RESP 16; TEMP 36.4; O2SAT 96
[2022-04-21 16:49] LABS: POC Glucose,Bedside 158 (70-110)
[2022-04-21 16:49] LABS: POC Glucose,Bedside 171 (70-110)
--- NOTE | 2022-04-21 18:07 | PC.NURSE ---
PT IS RESTING IN BED WITH FAMILY AT BEDSIDE. ALERT TO SELF. PT WILL FOLLOW COMMANDS AND ANSWER QUESTIONS HOWEVER IS VERY SLOW TO RESPOND. PT HAS BEEN UP TO THE CHAIR SEVERAL TIMES THIS SHIFT. PT HAD A SHOWER AND LINEN CHANGE THIS SHIFT. EATING AND DRINKING WELL. AMBULATES WELL (STAND BY ASSIST). PT HAS VOIDED SINCE CATHETER WAS DC'D. LUNG SOUNDS DIMINISHED. ABDOMEN SOFT/NON TENDER WITH ACTIVE BOWEL SOUNDS. PT HAS ABRASION NOTED TO THE LEFT KNEE WITH REDNESS/SWELLING/TENDERNESS. WILL CONTINUE TO MONITOR.
[2022-04-21 19:38] VITALS: BP 151/74; PULSE 98; RESP 18; TEMP 36.6; O2SAT 96
[2022-04-21 22:53] LABS: POC Glucose,Bedside 146 (70-110)
[2022-04-22 04:00] VITALS: BP 130/70; PULSE 86; RESP 18; TEMP 36.7; O2SAT 92
[2022-04-22 05:42] VITALS: BMI 34.4
[2022-04-22 06:00] LABS: POC Glucose,Bedside 151 (70-110)
--- NOTE | 2022-04-22 06:06 | PC.NURSE ---
pt has been restless t/o the night, has been up multiple times, bed alarm on for safety, no complaints of pain
[2022-04-22 08:00] VITALS: BP 152/79; PULSE 89; RESP 16; TEMP 36.8; O2SAT 94
--- NOTE | 2022-04-22 08:58 | EXP.PHA.CONS ---
Pharmacy Consult Date: 04/22/22 Time: 08:58 Referring provider: DR. HIGGINS Reason for Consult:: VANCOMCYIN DOSING Allergies Allergy/AdvReac Type Severity Reaction Status Date / Time bee venom protein (honey bee) Allergy Verified 03/15/22 10:46 honey Allergy Verified 03/15/22 10:46 Home Medications Medication Instructions Recorded Confirmed Type lorazepam 0.5 mg tablet (Ativan) 0.5 mg PO BID #60 tabs 04/07/22 04/21/22 Rx amlodipine 5 mg tablet (Norvasc) 5 mg PO DAILY blood pressure 04/21/22 04/21/22 History benztropine 1 mg tablet 1 mg PO DAILY Tremors 04/21/22 04/21/22 History benztropine 2 mg tablet 2 mg PO HS Tremors 04/21/22 04/21/22 History cyanocobalamin (vitamin B-12) 500 500 mcg PO DAILY Supplement 04/21/22 04/21/22 History mcg tablet dulaglutide 1.5 mg/0.5 mL 1.5 mg SQ WEEKLY Diabetes 04/21/22 04/21/22 History subcutaneous pen injector (Trulicity) ergocalciferol (vitamin D2) 1,250 50,000 unit PO WEEKLY Supplement 04/21/22 04/21/22 History mcg (50,000 unit) capsule (Vitamin D2) fluvoxamine 100 mg tablet 100 mg PO TID ocd/depression 04/21/22 04/21/22 History glipizide 5 mg tablet 5 mg PO BID Diabetes 04/21/22 04/21/22 History haloperidol 10 mg tablet 10 mg PO TID depression/behavior 04/21/22 04/21/22 History lithium carbonate 150 mg capsule 150 mg PO BID mood 04/21/22 04/21/22 History loratadine 10 mg tablet (Claritin) 10 mg PO DAILY Allergy symptoms 04/21/22 04/21/22 History melatonin 10 mg capsule 10 mg PO HS PRN Sleep 04/21/22 04/21/22 History metformin 500 mg tablet 500 mg PO DAILY Diabetes 04/21/22 04/21/22 History metoprolol tartrate 25 mg tablet 25 mg PO BID blood pressure 04/21/22 04/21/22 History olanzapine 20 mg tablet 20 mg PO HS mood 04/21/22 04/21/22 History omega-3 fatty acids 2,000 mg PO BID Cholesterol 04/21/22 04/21/22 History trazodone 100 mg tablet 100 mg PO HS sleep 04/21/22 04/21/22 History New Prescriptions to Start Prescriptions: Height: 1.7 m Weight: 99.422 kg Laboratory Results:: Laboratory Results - last 24 hr 04/21/22 05:56: POC Glucose 158 H 04/21/22 07:05: Total Counted 100, Neutrophils % (Manual) 73, Lymphocytes % (Manual) 18, Monocytes % (Manual) 8, Eosinophils % (Manual) 1, Platelet Estimate Normal, RBC Morphology Normal 04/21/22 10:59: POC Glucose 201 H 04/21/22 16:12: POC Glucose 171 H 04/21/22 22:43: POC Glucose 146 H 04/22/22 05:39: POC Glucose 151 H Assessment and Plan Assessment and plan all Dx Assessment and Plan for all problems:: Pharmacokinetic dosing service Patient: Floor: Age: 56 yo Serum creatinine: 1.5 mg/dL Height: 66.9 Inches Weight (kg): 99.4 Assessment: IBW (kg): 61.37 Dosing wt(kg): 99.4 Estimated Creatinine clearance (ml/min): 41.1 CRCL method: Cockcroft and Gault using ibw(default). Drug selected: Vancomycin Loading dose (mg): 0 Vd (liters): 79.5 (factor used: 0.8 L/kg) Preston (hr-1): 0.039 Half life (hrs): 17.77 Recommended dose: 1750 mg Interval: 24 hrs Infusion time (hrs): 2.0 Predicted peak (mcg/mL): 34.8 Predicted trough (mcg/mL): 14.76 Total body weight is being used for vancomycin dosing. Recommendations: Give Vancomycin 1750 mg q 24 hrs with an expected Cpeak of 34.8 mcg/ml and an expected Ctrough of 14.76 mcg/ml. ----Vanco only - ignore for aminoglycosides----- CLvanco= 3.10 L/hr AUC 0-24 /JAY Data: JAY 0.5 mcg/mL: AUC/JAY: 1129.0 JAY 1.0 mcg/mL: AUC/JAY: 564.5 --------- JAY 1.5 mcg/mL: AUC/JAY: 376.3 JAY 2.0 mcg/mL: AUC/JAY: 282.3
[2022-04-22 09:51] LABS: Basophils # 0.1 K/mm3 (0-0.2); Basophils % 0.5 % (0.1-2.0); Eosinophils % 0.1 % (0.1-12.0); Hematocrit 33.5 % (37.0-47.0); Hemoglobin 11.3 g/dL (12.2-16.2); Lymphocytes # 1.7 K/mm3 (0.7-4.5); Lymphocytes % 13.4 % (10-50); Mean Corpuscular HGB Conc 33.8 g/dL (31.8-35.4); Mean Corpuscular Hemoglobin 30.9 pg (27.0-31.2); Mean Corpuscular Volume 91.5 fl (81-99); Mean Platelet Volume 8.6 fl (7.4-10.4); Monocytes # 0.7 K/mm3 (0.1-1.0); Monocytes % 5.8 % (1.7-9.3); Neutrophils # 10.2 K/mm3 (1.8-7.8); Neutrophils % 80.2 % (37.0-80.0); Platelet Count 330 K/mm3 (142-424); Red Blood Count 3.66 M/mm3 (4.20-5.40); Red Cell Distribution Width 13.7 % (11.5-17.5); White Blood Count 12.7 K/mm3 (4.8-10.8)
[2022-04-22 09:59] LABS: Anion Gap 14.8 mEq/L (5-15); Blood Urea Nitrogen 16 mg/dl (7-17); Calcium 9.2 mg/dl (8.4-10.2); Carbon Dioxide 23 mmol/L (22.0-30.0); Chloride 106 mmol/L (98-107); Creatinine Clearance Estimated 91 mL/min (50-200); Estimated Glomerular Filt Rate 52 ml/min (>60); GFR (African American) 62 ML/MIN (>60); Glucose 168 mg/dl (74-100); Potassium 3.8 mmoL/L (3.5-5.1); Sodium 140 mmol/L (136-145)
[2022-04-22 11:25] VITALS: BMI 34.4
--- NOTE | 2022-04-22 12:35 | P.PN_ITS ---
Subjective *Date: 04/22/22 *Time: 16:49 Interval history: 56-year-old patient sitting up on the side of the bed she denies any chest pain or respiratory distress during the night. She does report left knee pain at aspiration site. 1 blood culture preliminary resulted gram-positive cocci, urine preliminary resulted gram-negative rods. Medical Exam Vital signs and Labs for Last 24 Hours: Temp Pulse Resp BP Pulse Ox 98.2 F 89 16 152/79 H 94 L 04/22/22 08:00 04/22/22 08:00 04/22/22 08:00 04/22/22 08:00 04/22/22 08:00 Laboratory Results - last 24 hr 04/20/22 20:45: Urine Color Yellow, Urine Appearance Cloudy, Urine pH 8.0, Ur Specific [place] 1.015, Urine Protein 1+, Urine Glucose (UA) Negative, Urine Ketones Negative, Urine Blood Negative, Urine Nitrate Negative, Urine Bilirubin Negative, Urine Urobilinogen 1.0, Ur Leukocyte Esterase 1+ A, Urine WBC 5-10, Urine Bacteria 4+ 04/21/22 05:56: POC Glucose 158 H 04/21/22 16:12: POC Glucose 171 H 04/21/22 22:43: POC Glucose 146 H 04/22/22 05:39: POC Glucose 151 H 04/22/22 09:39: WBC 12.7 H, RBC 3.66 L, Hgb 11.3 L, Hct 33.5 L, MCV 91.5, MCH 30.9, MCHC 33.8, RDW 13.7, Plt Count 330, MPV 8.6, Neut % (Auto) 80.2 H, Lymph % (Auto) 13.4, Randolph % (Auto) 5.8, Eos % (Auto) 0.1, Baso % (Auto) 0.5, Neut # (Auto) 10.2 H, Lymph # (Auto) 1.7, Randolph # (Auto) 0.7, Eos # (Auto) 0.0, Baso # (Auto) 0.1 04/22/22 09:39: Sodium 140, Potassium 3.8, Chloride 106, Carbon Dioxide 23, Anion Gap 14.8, BUN 16 D, Creatinine 1.10 H D, Estimated Creat Clear 91, Estimated GFR 52 L, Est GFR ( Amer) 62 D, Glucose 168 H, Calcium 9.2 I & O for Labs for Last 24 Hours: Intake & Output 04/19/22 04/20/22 04/21/22 04/22/22 23:59 23:59 23:59 23:59 Intake Total 2357 / 2357 999 / 999 Output Total 700 / 1700 1000 / 1000 Balance 1657 / 657 -1 / -1 Weight 416 lb 416 lb 219 lb 2.937 oz Microbiology Reports for the Last 24 Hours: Microbiology 04/20/22 20:35 Blood Blood Culture - Preliminary Gram Positive Cocci 04/20/22 20:45 Urine,Catheterized Urine Culture - Preliminary Gram Negative Rods 04/21/22 09:30 Knee,Left - Wound Gram Stain - Final Constitutional: Present no acute distress and chronically ill appearing Head: Present atraumatic Eyes: Present as per HPI ENT: Present normal exam Neck: Present normal inspection and trachea midline; Absent tenderness Respiratory: Present accessory muscle use and CTA bilaterally Cardiac: Present Reg Rate and Rhythm GI: Present soft and normal bowel sounds; Absent distention or tenderness Extremities: Present normal inspection, full ROM, tenderness and edema Comment:: Left knee with redness/warmth/pain Skin: Present erythema, dry and wounds Comment:: Left knee with redness/warmth/pain Neuro: Present Cranial Nerve 2-12 Intact Assessment and Plan Assessment and plan all Dx Assessment and Plan All Dx:: 1. Continue current medical regimen 2. Consult Ortho for left knee
--- NOTE | 2022-04-22 15:28 | PC.NURSE ---
PT IS SITTING UP IN THE CHAIR. ALERT TO SELF ONLY. PT HAS CONTINUES TO GET UP W/O ASSISTANCE. REMOVES SAFETY DEVICE WHILE IN THE CHAIR. EATING AND DRINKING WELL. LUNG SOUNDS DIMINISHED. ABDOMEN SOFT/NON TENDER WITH ACTIVE BOWEL SOUNDS. ABRASION NOTED TO THE LEFT KNEE WITH REDNESS/SWELLING/DRAINAGE. WILL CONTINUE TO MONITOR.
[2022-04-22 16:00] VITALS: BP 136/78; PULSE 108; RESP 16; TEMP 36.6; O2SAT 99
--- NOTE | 2022-04-22 17:17 | EXP.ORTH.CON ---
History of Present Illness *Admission Date: 04/21/22 *Reason for visit:: Left lower extremity cellulitis abrasion *History of present illness: 56-year-old female patient presenting to the [facility] emergency department from [facility]. They reported their altered mental status. In the emergency department white blood cell count 19.9, heart rate 125, temperature 103.5, and urinalysis revealing 1+ leukocytes and 4+ bacteria. Patient lying in bed now pleasantly confused, and stating I feel good. There is a large scabbed wound to her left knee which is red, warm, edematous. CT of the abdomen pelvis revealed air within the urinary bladder possibly due to recent catheterization or gas-forming bacteria. Mucosal thickening in the bladder suggesting chronic infectious or interstitial cystitis with malignancy to be excluded follow-up cystoscopy is recommended. Urology consulted [facility] Social History Smoking Status: Current some day smoker alcohol intake: never current occupational status: unemployed Travel in the last 8 weeks: None Review of Systems *Musculoskeletal Musculoskeletal: Reports abnormal gait and Reports stiffness *Neurologic Neurologic: Reports abnormal gait Meds Home Medications and Allergies Home Medications Medication Instructions Recorded Confirmed Type lorazepam 0.5 mg tablet (Ativan) 0.5 mg PO BID #60 tabs 04/07/22 04/21/22 Rx amlodipine 5 mg tablet (Norvasc) 5 mg PO DAILY blood pressure 04/21/22 04/21/22 History benztropine 1 mg tablet 1 mg PO DAILY Tremors 04/21/22 04/21/22 History benztropine 2 mg tablet 2 mg PO HS Tremors 04/21/22 04/21/22 History cyanocobalamin (vitamin B-12) 500 500 mcg PO DAILY Supplement 04/21/22 04/21/22 History mcg tablet dulaglutide 1.5 mg/0.5 mL 1.5 mg SQ WEEKLY Diabetes 04/21/22 04/21/22 History subcutaneous pen injector (Trulicity) ergocalciferol (vitamin D2) 1,250 50,000 unit PO WEEKLY Supplement 04/21/22 04/21/22 History mcg (50,000 unit) capsule (Vitamin D2) fluvoxamine 100 mg tablet 100 mg PO TID ocd/depression 04/21/22 04/21/22 History glipizide 5 mg tablet 5 mg PO BID Diabetes 04/21/22 04/21/22 History haloperidol 10 mg tablet 10 mg PO TID depression/behavior 04/21/22 04/21/22 History lithium carbonate 150 mg capsule 150 mg PO BID mood 04/21/22 04/21/22 History loratadine 10 mg tablet (Claritin) 10 mg PO DAILY Allergy symptoms 04/21/22 04/21/22 History melatonin 10 mg capsule 10 mg PO HS PRN Sleep 04/21/22 04/21/22 History metformin 500 mg tablet 500 mg PO DAILY Diabetes 04/21/22 04/21/22 History metoprolol tartrate 25 mg tablet 25 mg PO BID blood pressure 04/21/22 04/21/22 History olanzapine 20 mg tablet 20 mg PO HS mood 04/21/22 04/21/22 History omega-3 fatty acids 2,000 mg PO BID Cholesterol 04/21/22 04/21/22 History trazodone 100 mg tablet 100 mg PO HS sleep 04/21/22 04/21/22 History New Prescriptions to Start Prescriptions: Allergies Allergy/AdvReac Type Severity Reaction Status Date / Time bee venom protein (honey bee) Allergy Verified 03/15/22 10:46 honey Allergy Verified 03/15/22 10:46 Ortho Exam (Inpt) Vital signs and Labs for Last 24 Hours: Temp Pulse Resp BP Pulse Ox 97.9 F 108 H 16 136/78 99 04/22/22 16:00 04/22/22 16:00 04/22/22 16:00 04/22/22 16:00 04/22/22 16:00 Laboratory Results - last 24 hr 04/20/22 20:45: Urine Color Yellow, Urine Appearance Cloudy, Urine pH 8.0, Ur Specific [place] 1.015, Urine Protein 1+, Urine Glucose (UA) Negative, Urine Ketones Negative, Urine Blood Negative, Urine Nitrate Negative, Urine Bilirubin Negative, Urine Urobilinogen 1.0, Ur Leukocyte Esterase 1+ A, Urine WBC 5-10, Urine Bacteria 4+ 04/21/22 22:43: POC Glucose 146 H 04/22/22 05:39: POC Glucose 151 H 04/22/22 09:39: WBC 12.7 H, RBC 3.66 L, Hgb 11.3 L, Hct 33.5 L, MCV 91.5, MCH 30.9, MCHC 33.8, RDW 13.7, Plt Count 330, MPV 8.6, Neut
[2022-04-22 17:48] LABS: C-Reactive Protein 137.2 mg/L (0-4)
[2022-04-22 20:00] VITALS: BP 159/76; PULSE 104; RESP 16; TEMP 36.6; O2SAT 96
[2022-04-23 04:00] VITALS: BP 129/53; PULSE 100; RESP 16; TEMP 36.6; O2SAT 98
--- NOTE | 2022-04-23 04:20 | PC.NURSE ---
Addendum entered by Jael Saenz, RNA 04/23/22 04:44: Pt left knee noted to have scab with redness, swelling, and warmth to the area. Noted to be outside of the marker spots in some areas. Small scabs noted on both knees in different locations but no redness or swelling noted. Original Note: Pt is alert to self. Pt has walked out into hallway multiple times this shift, but will go back in when ask to do so. Pt is pleasant. Pt has used the toilet this shift. Pt is ACHS FS, covered per protocol. Pt lung sounds are clear. Abdomen soft and nontender, bowel sounds active. O2 sat >90% on room air. Call light in reach and working.
[2022-04-23 05:00] VITALS: BMI 33.5
[2022-04-23 08:00] VITALS: BP 165/79; PULSE 108; RESP 16; TEMP 36.7; O2SAT 98
[2022-04-23 08:51] LABS: Magnesium 1.3 mg/dl (1.6-2.3)
[2022-04-23 08:57] LABS: Chloride 110 mmol/L (98-107)
[2022-04-23 08:58] LABS: Potassium 5.2 mmoL/L (3.5-5.1); Sodium 141 mmol/L (136-145)
[2022-04-23 09:00] LABS: Blood Urea Nitrogen 11 mg/dl (7-17); Creatinine Clearance Estimated 108 mL/min (50-200); Estimated Glomerular Filt Rate 65 ml/min (>60); GFR (African American) 79 ML/MIN (>60)
[2022-04-23 09:01] LABS: Anion Gap 18.2 mEq/L (5-15); Calcium 9.7 mg/dl (8.4-10.2); Carbon Dioxide 18 mmol/L (22.0-30.0); Glucose 247 mg/dl (74-100)
[2022-04-23 09:25] LABS: Basophils # 0.1 K/mm3 (0-0.2); Basophils % 0.6 % (0.1-2.0); Eosinophils % 0.2 % (0.1-12.0); Hematocrit 36.9 % (37.0-47.0); Hemoglobin 11.8 g/dL (12.2-16.2); Lymphocytes # 2.1 K/mm3 (0.7-4.5); Lymphocytes % 16.2 % (10-50); Mean Corpuscular HGB Conc 31.9 g/dL (31.8-35.4); Mean Platelet Volume 9.3 fl (7.4-10.4); Monocytes # 0.9 K/mm3 (0.1-1.0); Monocytes % 6.9 % (1.7-9.3); Neutrophils # 9.7 K/mm3 (1.8-7.8); Neutrophils % 76.1 % (37.0-80.0); Platelet Count 373 K/mm3 (142-424); Red Blood Count 3.93 M/mm3 (4.20-5.40); Red Cell Distribution Width 13.7 % (11.5-17.5); White Blood Count 12.8 K/mm3 (4.8-10.8)
--- NOTE | 2022-04-23 09:37 | EXP.DC.SUM ---
General Admission date:: 04/21/22 Discharge date: 04/23/22 HPI HPI HPI: 56-year-old female patient presenting to the [facility] emergency department from [facility]. They reported their altered mental status. In the emergency department white blood cell count 19.9, heart rate 125, temperature 103.5, and urinalysis revealing 1+ leukocytes and 4+ bacteria. Patient lying in bed now pleasantly confused, and stating I feel good. There is a large scabbed wound to her left knee which is red, warm, edematous. CT of the abdomen pelvis revealed air within the urinary bladder possibly due to recent catheterization or gas-forming bacteria. Mucosal thickening in the bladder suggesting chronic infectious or interstitial cystitis with malignancy to be excluded follow-up cystoscopy is recommended. Urology consulted Hospital Course Hospital Course Hospital Course: 56-year-old female pleasantly confused presented to the [facility] emergency department from [facility] for altered mental status. UA revealed 1+ leukocytes and 4+ bacteria 04/20/[address]: FINDINGS: Brain: Normal. No hemorrhage. Unremarkable white matter. No mass effect. Cerebral ventricles: No ventriculomegaly. Paranasal sinuses:? Mucosal thickening. No fluid levels. Mastoid air cells: Visualized mastoid air cells are well aerated. Bones/joints: Unremarkable. No acute fracture. Soft tissues: Unremarkable. IMPRESSION: No acute intracranial abnormality. Electronically signed by Irwin Ervin DO 04/20/22 CXR: FINDINGS: Lungs: Hazy density left lung base. Pleural spaces: Unremarkable. No pleural effusion. No pneumothorax. Heart/Mediastinum: Unremarkable. No cardiomegaly. Bones/joints: Unremarkable. IMPRESSION: Left pleural effusion. Irwin Ervin MD 04/20/22 Abd/Pelvis CT: FINDINGS: Heart: Heart is enlarged. Coronary artery calcifications. Diaphragm: Sliding hiatal hernia. Liver: Normal. No mass. Gallbladder and bile ducts: Gallbladder is surgically absent. No pathologic dilation of the biliary tree. Pancreas: Normal. No ductal dilation. Spleen: Spleen is enlarged measuring over 13.5 cm in length but without focal lesion. Adrenal glands: Normal. No mass. Kidneys and ureters: Normal. No hydronephrosis. Stomach and bowel: Excessive stool within the transverse and right hemicolon. Appendix: No evidence of appendicitis. Intraperitoneal space: Unremarkable. No free air. No significant fluidcollection. Vasculature: Unremarkable. No abdominal aortic aneurysm. Lymph nodes: Unremarkable. No enlarged lymph nodes. Urinary bladder: A Roblero catheter is present within the urinary bladder. Airwithin the urinary bladder could be due to recent instrumentation or gas-forming bacteria. Mucosal thickening in the urinary bladder suggestschronic infectious or interstitial cystitis with malignancy to be excluded. Follow-up cystoscopy is recommended. Reproductive: Unremarkable as visualized. Bones/joints: Skeletal structures are negative for a evidence of aggressive process or acute fracture. There are diffuse degenerative changes. Soft tissues: Unremarkable. IMPRESSION: 1. A Roblero catheter is present within the urinary bladder. Air within theurinary bladder could be due to recent instrumentation or gas-forming bacteria. Mucosal thickening in the urinary bladder suggests chronic infectious orinterstitial cystitis with malignancy to be excluded. Follow-up cystoscopy is recommended. 2. Excessive stool within the transverse and right hemicolon. 3. Spleen is enlarged measuring over 13.5 cm in length but without focal lesion. 4. Gallbladder is surgically absent. No pathologic dilation of the biliary tree. 5. Cardiomegaly and coronary artery calcifications. 6. Sliding hiatal hernia. Electronically signed by Irwin Ervin DO 04/21/22 ECHO: Conclusion 1.? Technically difficult study because of the patient factors and poor acousti
[2022-04-23 15:32] VITALS: BP 155/77; PULSE 98; RESP 16; TEMP 36.7; O2SAT 93
[2022-04-23 17:56] LABS: POC Glucose,Bedside 140 (70-110)
--- NOTE | 2022-04-23 18:49 | PC.NURSE ---
Patient has been confused during shift. VS stable and pt remained on room air. Patient frequently walks out into hallway and has to be redirected into room. Patient up to chair for most of shift. No other complaints noted.
[2022-04-23 20:00] VITALS: BP 178/78; PULSE 113; RESP 18; TEMP 36.4; O2SAT 96
[2022-04-24 03:54] VITALS: BP 142/85; PULSE 74; RESP 18; TEMP 36.7; O2SAT 100
--- NOTE | 2022-04-24 05:46 | PC.NURSE ---
pt is a&o to name and birthday. she walked into the jhaveri a few times at the beginning of this shift, and has slept most of the night after that. lung sounds clear. she ambulated to the bathroom independently with no safety concerns. she remains on a diabetic diet and tolerates well. remains on RA and tolerates well. insulin required this shift, per SEP. no complaints this shift and no needs at this time. Medical POA form given to me by family. it was copied and placed in her chart.
[2022-04-24 06:54] LABS: Basophils # 0.1 K/mm3 (0-0.2); Basophils % 0.9 % (0.1-2.0); Eosinophils # 0.1 K/mm3 (0.0-0.4); Eosinophils % 1.1 % (0.1-12.0); Lymphocytes # 2.4 K/mm3 (0.7-4.5); Lymphocytes % 26.3 % (10-50); Mean Corpuscular HGB Conc 33.4 g/dL (31.8-35.4); Mean Corpuscular Hemoglobin 30.2 pg (27.0-31.2); Mean Corpuscular Volume 90.2 fl (81-99); Mean Platelet Volume 10.1 fl (7.4-10.4); Monocytes # 0.7 K/mm3 (0.1-1.0); Neutrophils # 5.8 K/mm3 (1.8-7.8); Neutrophils % 63.7 % (37.0-80.0); Platelet Count 318 K/mm3 (142-424); Red Blood Count 3.65 M/mm3 (4.20-5.40); Red Cell Distribution Width 13.6 % (11.5-17.5); White Blood Count 9.1 K/mm3 (4.8-10.8)
[2022-04-24 07:20] LABS: Anion Gap 13.5 mEq/L (5-15); Blood Urea Nitrogen 10 mg/dl (7-17); Calcium 9.7 mg/dl (8.4-10.2); Carbon Dioxide 23 mmol/L (22.0-30.0); Chloride 111 mmol/L (98-107); Creatinine Clearance Estimated 113 mL/min (50-200); Estimated Glomerular Filt Rate 65 ml/min (>60); GFR (African American) 79 ML/MIN (>60); Glucose 125 mg/dl (74-100); Potassium 4.5 mmoL/L (3.5-5.1); Sodium 143 mmol/L (136-145)
[2022-04-24 08:00] VITALS: BP 159/80; PULSE 102; RESP 16; TEMP 37; O2SAT 94
--- NOTE | 2022-04-24 08:31 | P.PN_ITS ---
Subjective *Date: 04/24/22 *Time: 08:31 Medical Exam Vital signs and Labs for Last 24 Hours: Temp Pulse Resp BP Pulse Ox 98.0 F 74 18 142/85 H 100 04/24/22 03:54 04/24/22 03:54 04/24/22 03:54 04/24/22 03:54 04/24/22 03:54 Laboratory Results - last 24 hr 04/23/22 07:55: WBC 12.8 H, RBC 3.93 L, Hgb 11.8 L, Hct 36.9 L, MCV 94.0, MCH 30.0, MCHC 31.9, RDW 13.7, Plt Count 373, MPV 9.3, Neut % (Auto) 76.1, Lymph % (Auto) 16.2, [place] % (Auto) 6.9, Eos % (Auto) 0.2, Baso % (Auto) 0.6, Neut # (Auto) 9.7 H, Lymph # (Auto) 2.1, [place] # (Auto) 0.9, Eos # (Auto) 0.0, Baso # (Auto) 0.1 04/23/22 07:55: Sodium 141, Potassium 5.2 H D, Chloride 110 H, Carbon Dioxide 18 L, Anion Gap 18.2 H, BUN 11 D, Creatinine 0.90, Estimated Creat Clear 108, Est imated GFR 65, Est GFR ( Amer) 79 D, Glucose 247 H D, Calcium 9.7 04/23/22 07:55: Magnesium 1.3 L D 04/23/22 17:46: POC Glucose 140 H 04/24/22 06:45: WBC 9.1 D, RBC 3.65 L, Hgb 11.0 L, Hct 33.0 L, MCV 90.2, MCH 30.2, MCHC 33.4, RDW 13.6, Plt Count 318, MPV 10.1, Neut % (Auto) 63.7, Lymph % (Auto) 26.3, [place] % (Auto) 8.0, Eos % (Auto) 1.1, Baso % (Auto) 0.9, Neut # (Auto) 5.8, Lymph # (Auto) 2.4, [place] # (Auto) 0.7, Eos # (Auto) 0.1, Baso # (Auto) 0.1 04/24/22 06:45: Sodium 143, Potassium 4.5, Chloride 111 H, Carbon Dioxide 23, Anion Gap 13.5, BUN 10, Creatinine 0.90, Estimated Creat Clear 113, Estimated GFR 65, Est GFR ( Amer) 79, Glucose 125 H D, Calcium 9.7 I & O for Labs for Last 24 Hours: Intake & Output 04/21/22 04/22/22 04/23/22 04/24/22 23:59 23:59 23:59 23:59 Intake Total 2357 / 2357 1839 / 1839 1210 / 1210 Output Total 700 / 1700 1000 / 1000 650 / 650 0 / 0 Balance 1657 / 657 839 / 839 560 / 560 0 / 0 Weight 188.694 kg 99.42 kg 97.069 kg 101.469 kg Microbiology Reports for the Last 24 Hours: Microbiology 04/21/22 09:30 Knee,Left - Wound Gram Stain - Final 04/21/22 09:30 Knee,Left - Wound Wound Culture - Final Staphylococcus aureus 04/20/22 20:45 Urine,Catheterized Urine Culture - Final Citrobacter braakii 04/20/22 20:35 Blood Blood Culture - Final Staphylococcus aureus The patient's infection will respond to the chosen ABx?: Yes (CITROBACTER BRAAK II, ROCEPHIN SENSITIVE) Is the patient receiving the right drug, dose, and route?: Yes Could a more targeted ABx be ordered?: No
--- NOTE | 2022-04-24 09:41 | EXP.ACUTE.PN ---
Subjective *Date: 04/24/22 *Time: 19:33 Interval history: 56-year-old female patient sitting up on side of bed no apparent distress noted. She reports left knee pain less today than yesterday. Less redness and edema noted. Urine culture resulted Citrobacter braaki, wound culture and 1 blood culture resulted MRSA Medical Exam Vital signs and Labs for Last 24 Hours: Temp Pulse Resp BP Pulse Ox 98.6 F 102 H 16 159/80 H 94 L 04/24/22 08:00 04/24/22 08:00 04/24/22 08:00 04/24/22 08:00 04/24/22 08:00 Laboratory Results - last 24 hr 04/23/22 17:46: POC Glucose 140 H 04/24/22 06:45: WBC 9.1 D, RBC 3.65 L, Hgb 11.0 L, Hct 33.0 L, MCV 90.2, MCH 30.2, MCHC 33.4, RDW 13.6, Plt Count 318, MPV 10.1, Neut % (Auto) 63.7, Lymph % (Auto) 26.3, [place] % (Auto) 8.0, Eos % (Auto) 1.1, Baso % (Auto) 0.9, Neut # (Auto) 5.8, Lymph # (Auto) 2.4, [place] # (Auto) 0.7, Eos # (Auto) 0.1, Baso # (Auto) 0.1 04/24/22 06:45: Sodium 143, Potassium 4.5, Chloride 111 H, Carbon Dioxide 23, Anion Gap 13.5, BUN 10, Creatinine 0.90, Estimated Creat Clear 113, Estimated GFR 65, Est GFR ( Amer) 79, Glucose 125 H D, Calcium 9.7 I & O for Labs for Last 24 Hours: Intake & Output 04/21/22 04/22/22 04/23/22 04/24/22 23:59 23:59 23:59 23:59 Intake Total 2357 / 2357 1839 / 1839 1210 / 1210 Output Total 700 / 1700 1000 / 1000 650 / 650 0 / 0 Balance 1657 / 657 839 / 839 560 / 560 0 / 0 Weight 416 lb 219 lb 2.937 oz 214 lb 223 lb 11.2 oz Microbiology Reports for the Last 24 Hours: Microbiology 04/21/22 09:30 Knee,Left - Wound Gram Stain - Final 04/21/22 09:30 Knee,Left - Wound Wound Culture - Final Staphylococcus aureus 04/20/22 20:45 Urine,Catheterized Urine Culture - Final Citrobacter braakii 04/20/22 20:35 Blood Blood Culture - Final Staphylococcus aureus Head: Present atraumatic Eyes: Present as per HPI ENT: Present normal exam Respiratory: Present CTA bilaterally; Absent accessory muscle use Cardiac: Present Reg Rate and Rhythm GI: Present soft and normal bowel sounds; Absent distention, tenderness or guarding Skin: Present intact and warm; Absent cyanosis or erythema Neuro: Present Motor Function Intact, alert and awake Assessment and Plan *Assessment and plan (1) Abrasion of knee, left, infected: Status: Acute Category: Medical Code(s): S80.212A - Abrasion, left knee, initial encounter; L08.9 - Local infection of the skin and subcutaneous tissue, unspecified (2) Diabetes 1.5, managed as type 2: Status: Acute Category: Medical Code(s): E13.9 - Other specified diabetes mellitus without complications (3) Obesity: Status: Acute Category: Medical Code(s): E66.9 - Obesity, unspecified (4) Bipolar 1 disorder: Status: Acute Category: Medical Code(s): F31.9 - Bipolar disorder, unspecified (5) UTI (urinary tract infection): Status: Acute Category: Medical Code(s): N39.0 - Urinary tract infection, site not specified (6) MRSA (methicillin resistant staph aureus) culture positive: Status: Acute Category: Medical Code(s): Z22.322 - Carrier or suspected carrier of Methicillin resistant Staphylococcus aureus (7) Citrobacter infection: Status: Acute Category: Medical Code(s): A49.8 - Other bacterial infections of unspecified site (8) Bacteremia due to methicillin resistant Staphylococcus aureus: Status: Acute Category: Medical Code(s): R78.81 - Bacteremia; B95.62 - Methicillin resistant Staphylococcus aureus infection as the cause of diseases classified elsewhere Plan 1. Continue current medical management 2. Awaiting blood culture results
--- NOTE | 2022-04-24 11:01 | EXP.ORTH.PN ---
Subjective *Date: 04/24/22 *Time: 11:01 Interval history: Patient on antibiotics reports less pain left lower extremity Ortho Exam (Inpt) Vital signs and Labs for Last 24 Hours: Temp Pulse Resp BP Pulse Ox 98.6 F 102 H 16 159/80 H 94 L 04/24/22 08:00 04/24/22 08:00 04/24/22 08:00 04/24/22 08:00 04/24/22 08:00 Laboratory Results - last 24 hr 04/23/22 17:46: POC Glucose 140 H 04/24/22 06:45: WBC 9.1 D, RBC 3.65 L, Hgb 11.0 L, Hct 33.0 L, MCV 90.2, MCH 30.2, MCHC 33.4, RDW 13.6, Plt Count 318, MPV 10.1, Neut % (Auto) 63.7, Lymph % (Auto) 26.3, [place] % (Auto) 8.0, Eos % (Auto) 1.1, Baso % (Auto) 0.9, Neut # (Auto) 5.8, Lymph # (Auto) 2.4, [place] # (Auto) 0.7, Eos # (Auto) 0.1, Baso # (Auto) 0.1 04/24/22 06:45: Sodium 143, Potassium 4.5, Chloride 111 H, Carbon Dioxide 23, Anion Gap 13.5, BUN 10, Creatinine 0.90, Estimated Creat Clear 113, Estimated GFR 65, Est GFR ( Amer) 79, Glucose 125 H D, Calcium 9.7 I & O for Labs for Last 24 Hours: Intake & Output 04/21/22 04/22/22 04/23/22 04/24/22 23:59 23:59 23:59 23:59 Intake Total 2357 / 2357 1839 / 1839 1210 / 1210 Output Total 700 / 1700 1000 / 1000 650 / 650 0 / 0 Balance 1657 / 657 839 / 839 560 / 560 0 / 0 Weight 416 lb 219 lb 2.937 oz 214 lb 223 lb 11.2 oz Microbiology Reports for the Last 24 Hours: Microbiology 04/21/22 09:30 Knee,Left - Wound Gram Stain - Final 04/21/22 09:30 Knee,Left - Wound Wound Culture - Final Staphylococcus aureus Findings:: Left lower extremity: Redness has regressed from the superior aspect of the marked progression of erythema. Mild improvement of swelling Assessment and Plan *Assessment and plan (1) Abrasion of knee, left, infected: Status: Acute Category: Medical Code(s): S80.212A - Abrasion, left knee, initial encounter; L08.9 - Local infection of the skin and subcutaneous tissue, unspecified Plan Wound check today slight clinical improvement regression of the erythema continue with antibiotics. Still no evidence of infected septic arthritis of the knee. Continue conservative treatment
[2022-04-24 11:17] LABS: Lithium (Eskalith(R)) 0.5 mmol/L (0.5-1.2)
[2022-04-24 11:57] LABS: POC Glucose,Bedside 202 (70-110)
--- NOTE | 2022-04-24 12:55 | PC.NURSE ---
pt had one unmeasured void
--- NOTE | 2022-04-24 15:02 | PC.NURSE ---
0820 passed patient morning meds. at that time patient resting in bed, refusing breakfast stating she wanted to sleep. no questions. did end up sitting up on side of bed and allowed staff to walker her to bathroom to brush teeth. encouraged her to ring out .
[2022-04-24 16:00] VITALS: BP 159/61; PULSE 105; RESP 18; TEMP 36.4; O2SAT 98
[2022-04-24 17:12] LABS: POC Glucose,Bedside 147 (70-110)
--- NOTE | 2022-04-24 17:30 | PC.NURSE ---
one unmeasured void
--- NOTE | 2022-04-24 18:06 | PC.NURSE ---
VS stable and patient remained on room air. Patient ambulated inside of room several times during the day. IV antibiotics given. Patient remains confused. No needs verbalized.
[2022-04-24 20:00] VITALS: BP 154/80; PULSE 89; RESP 18; TEMP 36.7; O2SAT 89
[2022-04-25 04:00] VITALS: BP 143/67; PULSE 97; RESP 18; TEMP 36.9; O2SAT 92
--- NOTE | 2022-04-25 05:21 | PC.NURSE ---
NO ACUTE CHANGES SINCE PREVIOUS ASSESSMENT. PT HAS BEEN ALERT TO NAME AND BIRTHDAY THIS SHIFT. STATES SHE DOES NOT REMEMBER WHERE SHE IS. PT HAS RESTED INTERMITTENTLY. PT HAS CAME OUT INTO THE UP A FEW TIMES THIS SHIFT AND IN TO THE SOFTWARE CLERK STATION. PT REDIRECTED TO HER ROOM. PT HAS BEEN PLEASANTLY CONFUSED THIS SHIFT AND HAS REQUESTED SEVERAL TIMES TO SPEAK WITH HER MOTHER. SPOKE WITH PT'S FAMILY AT THE START OF SHIFT AND SISTER DOES NOT WANT PT TO TALK TO HER MOTHER AT THIS TIME BECAUSE MOTHER DOES NOT KNOW PT IS IN [facility]. SISTER WANTS TO TELL THEIR MOTHER IN PERSON ON WEDNESDAY. VSS. CALL VILLEDA WITHIN REACH.
[2022-04-25 07:10] LABS: Basophils # 0.1 K/mm3 (0-0.2); Basophils % 0.6 % (0.1-2.0); Eosinophils % 0.1 % (0.1-12.0); Hematocrit 32.3 % (37.0-47.0); Lymphocytes # 2.9 K/mm3 (0.7-4.5); Mean Corpuscular Hemoglobin 30.6 pg (27.0-31.2); Mean Corpuscular Volume 89.8 fl (81-99); Mean Platelet Volume 8.1 fl (7.4-10.4); Monocytes # 0.7 K/mm3 (0.1-1.0); Monocytes % 7.2 % (1.7-9.3); Neutrophils # 5.7 K/mm3 (1.8-7.8); Neutrophils % 61.2 % (37.0-80.0); Platelet Count 371 K/mm3 (142-424); Red Blood Count 3.59 M/mm3 (4.20-5.40); Red Cell Distribution Width 13.6 % (11.5-17.5); White Blood Count 9.3 K/mm3 (4.8-10.8)
[2022-04-25 07:32] LABS: Anion Gap 12.1 mEq/L (5-15); Blood Urea Nitrogen 12 mg/dl (7-17); Calcium 9.7 mg/dl (8.4-10.2); Carbon Dioxide 25 mmol/L (22.0-30.0); Chloride 110 mmol/L (98-107); Creatinine Clearance Estimated 102 mL/min (50-200); Estimated Glomerular Filt Rate 58 ml/min (>60); GFR (African American) 70 ML/MIN (>60); Glucose 161 mg/dl (74-100); Potassium 4.1 mmoL/L (3.5-5.1); Sodium 143 mmol/L (136-145)
[2022-04-25 08:00] VITALS: BP 152/80; PULSE 94; RESP 16; TEMP 36.9; O2SAT 93
--- NOTE | 2022-04-25 09:32 | P.PN_ITS ---
Subjective *Date: 04/25/22 *Time: 09:32 Medical Exam Vital signs and Labs for Last 24 Hours: Temp Pulse Resp BP Pulse Ox 98.4 F 94 H 16 152/80 H 93 L 04/25/22 08:00 04/25/22 08:00 04/25/22 08:00 04/25/22 08:00 04/25/22 08:00 Laboratory Results - last 24 hr 04/23/22 10:25: [place] 0.5 04/24/22 11:48: POC Glucose 202 H 04/24/22 17:03: POC Glucose 147 H 04/25/22 06:45: WBC 9.3, RBC 3.59 L, Hgb 11.0 L, Hct 32.3 L, MCV 89.8, MCH 30.6, MCHC 34.0, RDW 13.6, Plt Count 371, MPV 8.1, Neut % (Auto) 61.2, Lymph % (Auto) 31.0, [place] % (Auto) 7.2, Eos % (Auto) 0.1, Baso % (Auto) 0.6, Neut # (Auto) 5.7, Lymph # (Auto) 2.9, [place] # (Auto) 0.7, Eos # (Auto) 0.0, Baso # (Auto) 0.1 04/25/22 06:45: Sodium 143, Potassium 4.1, Chloride 110 H, Carbon Dioxide 25, Anion Gap 12.1, BUN 12, Creatinine 1.00, Estimated Creat Clear 102, Estimated GFR 58 L, Est GFR ( Amer) 70, Glucose 161 H D, Calcium 9.7 I & O for Labs for Last 24 Hours: Intake & Output 04/22/22 04/23/22 04/24/22 04/25/22 23:59 23:59 23:59 23:59 Intake Total 1839 / 1839 1210 / 1210 840 / 840 Output Total 1000 / 1000 650 / 650 0 / 0 0 / 0 Balance 839 / 839 560 / 560 840 / 840 0 / 0 Weight 99.42 kg 97.069 kg 101.469 kg Microbiology Reports for the Last 24 Hours: Microbiology 04/21/22 09:30 Knee,Left - Wound Gram Stain - Final 04/21/22 09:30 Knee,Left - Wound Wound Culture - Final Staphylococcus aureus The patient's infection will respond to the chosen ABx?: Yes (MRSA IN LEFT KNEE WOUND, VANCOMYCIN COVERS) Is the patient receiving the right drug, dose, and route?: Yes Could a more targeted ABx be ordered?: No
[2022-04-25 09:36] LABS: Vancomycin,Trough 13.4 ug/mL (5.0-10.0)
--- NOTE | 2022-04-25 09:52 | EXP.PHA.CONS ---
Pharmacy Consult Date: 04/25/22 Time: 09:52 Referring provider: DR HIGGINS Reason for Consult:: VANCOMYCIN THERAPEUTIC LEVEL OBTAINED Allergies Allergy/AdvReac Type Severity Reaction Status Date / Time bee venom protein (honey bee) Allergy Verified 03/15/22 10:46 honey Allergy Verified 03/15/22 10:46 Home Medications Medication Instructions Recorded Confirmed Type lorazepam 0.5 mg tablet (Ativan) 0.5 mg PO BID #60 tabs 04/07/22 04/21/22 Rx amlodipine 5 mg tablet (Norvasc) 5 mg PO DAILY blood pressure 04/21/22 04/21/22 History benztropine 1 mg tablet 1 mg PO DAILY Tremors 04/21/22 04/21/22 History benztropine 2 mg tablet 2 mg PO HS Tremors 04/21/22 04/21/22 History cyanocobalamin (vitamin B-12) 500 500 mcg PO DAILY Supplement 04/21/22 04/21/22 History mcg tablet dulaglutide 1.5 mg/0.5 mL 1.5 mg SQ WEEKLY Diabetes 04/21/22 04/21/22 History subcutaneous pen injector (Trulicity) ergocalciferol (vitamin D2) 1,250 50,000 unit PO WEEKLY Supplement 04/21/22 04/21/22 History mcg (50,000 unit) capsule (Vitamin D2) fluvoxamine 100 mg tablet 100 mg PO TID ocd/depression 04/21/22 04/21/22 History glipizide 5 mg tablet 5 mg PO BID Diabetes 04/21/22 04/21/22 History haloperidol 10 mg tablet 10 mg PO TID depression/behavior 04/21/22 04/21/22 History lithium carbonate 150 mg capsule 150 mg PO BID mood 04/21/22 04/21/22 History loratadine 10 mg tablet (Claritin) 10 mg PO DAILY Allergy symptoms 04/21/22 04/21/22 History melatonin 10 mg capsule 10 mg PO HS PRN Sleep 04/21/22 04/21/22 History metformin 500 mg tablet 500 mg PO DAILY Diabetes 04/21/22 04/21/22 History metoprolol tartrate 25 mg tablet 25 mg PO BID blood pressure 04/21/22 04/21/22 History olanzapine 20 mg tablet 20 mg PO HS mood 04/21/22 04/21/22 History omega-3 fatty acids 2,000 mg PO BID Cholesterol 04/21/22 04/21/22 History trazodone 100 mg tablet 100 mg PO HS sleep 04/21/22 04/21/22 History cefdinir 300 mg capsule 300 mg PO BID 12 days #24 caps 04/23/22 Rx New Prescriptions to Start Prescriptions: cefdinir Travis Limon Height: 17 m Weight: 101.469 kg Laboratory Results:: Laboratory Results - last 24 hr 04/23/22 10:25: [place] 0.5 04/24/22 11:48: POC Glucose 202 H 04/24/22 17:03: POC Glucose 147 H 04/25/22 06:45: WBC 9.3, RBC 3.59 L, Hgb 11.0 L, Hct 32.3 L, MCV 89.8, MCH 30.6, MCHC 34.0, RDW 13.6, Plt Count 371, MPV 8.1, Neut % (Auto) 61.2, Lymph % (Auto) 31.0, [place] % (Auto) 7.2, Eos % (Auto) 0.1, Baso % (Auto) 0.6, Neut # (Auto) 5.7, Lymph # (Auto) 2.9, [place] # (Auto) 0.7, Eos # (Auto) 0.0, Baso # (Auto) 0.1 04/25/22 06:45: Sodium 143, Potassium 4.1, Chloride 110 H, Carbon Dioxide 25, Anion Gap 12.1, BUN 12, Creatinine 1.00, Estimated Creat Clear 102, Estimated GFR 58 L, Est GFR ( Amer) 70, Glucose 161 H D, Calcium 9.7 04/25/22 08:44: Vancomycin Trough 13.4 H Assessment and Plan Assessment and plan (1) Bacteremia due to methicillin resistant Staphylococcus aureus: Status: Acute Category: Medical Code(s): R78.81 - Bacteremia; B95.62 - Methicillin resistant Staphylococcus aureus infection as the cause of diseases classified elsewhere (2) MRSA (methicillin resistant staph aureus) culture positive: Status: Acute Category: Medical Code(s): Z22.322 - Carrier or suspected carrier of Methicillin resistant Staphylococcus aureus (3) Abrasion of knee, left, infected: Status: Acute Category: Medical Code(s): S80.212A - Abrasion, left knee, initial encounter; L08.9 - Local infection of the skin and subcutaneous tissue, unspecified Plan VANCOMYCIN TROUGH LEVEL OBTAINED AT 13.4 MCG/ML (04/25/22 08:44). RECOMMEND CONTINUING CURRENT REGIMEN OF VANCOMYCIN 1750 MG Q24H.
[2022-04-25 14:22] LABS: Vancomycin,Peak 61.4 ug/ml (11-39)
--- NOTE | 2022-04-25 15:05 | EXP.PN ---
Subjective *Date: 04/25/22 *Time: 15:05 Interval history: left lower extremity cellulitis cx=staph currently on rocephin/vancomycin ortho note reviewed no plans for i/d Exam Data for Last 24 hours Vital signs and Labs for Last 24 Hours: Temp Pulse Resp BP Pulse Ox 98.4 F 94 H 16 152/80 H 93 L 04/25/22 08:00 04/25/22 08:00 04/25/22 08:00 04/25/22 08:00 04/25/22 08:00 Laboratory Results - last 24 hr 04/24/22 17:03: POC Glucose 147 H 04/25/22 06:45: WBC 9.3, RBC 3.59 L, Hgb 11.0 L, Hct 32.3 L, MCV 89.8, MCH 30.6, MCHC 34.0, RDW 13.6, Plt Count 371, MPV 8.1, Neut % (Auto) 61.2, Lymph % (Auto) 31.0, [place] % (Auto) 7.2, Eos % (Auto) 0.1, Baso % (Auto) 0.6, Neut # (Auto) 5.7, Lymph # (Auto) 2.9, [place] # (Auto) 0.7, Eos # (Auto) 0.0, Baso # (Auto) 0.1 04/25/22 06:45: Sodium 143, Potassium 4.1, Chloride 110 H, Carbon Dioxide 25, Anion Gap 12.1, BUN 12, Creatinine 1.00, Estimated Creat Clear 102, Estimated GFR 58 L, Est GFR ( Amer) 70, Glucose 161 H D, Calcium 9.7 04/25/22 08:44: Vancomycin Trough 13.4 H 04/25/22 13:04: Vancomycin Peak 61.4 H* I & O for Last 24 hours: Intake & Output 04/22/22 04/23/22 04/24/22 04/25/22 23:59 23:59 23:59 23:59 Intake Total 1839 / 1839 1210 / 1210 840 / 840 250 / 250 Output Total 1000 / 1000 650 / 650 0 / 0 0 / 0 Balance 839 / 839 560 / 560 840 / 840 250 / 250 Weight 219 lb 2.937 oz 214 lb 223 lb 11.2 oz 223 lb 11.2 oz Microbiology Reports for the Last 24 Hours: Microbiology 04/23/22 11:40 Blood Blood Culture - Preliminary NO GROWTH AFTER 48 HOURS 04/23/22 11:35 Blood Blood Culture - Preliminary NO GROWTH AFTER 48 HOURS *Routine HEENT Exam Head: Present normocephalic Eye: Absent conjunctival icterus ENT: Present mucous membranes moist *Routine Neck Exam Neck: Present supple *Routine Respiratory Exam Respiratory: Present CTA bilaterally *Routine Cardiovascular Exam Cardiovascular: Present RRR *Routine Abdominal Exam Abdominal: Present soft; Absent tenderness *Routine Extremities Exam Extremities: Present tenderness; Absent cyanosis *Routine Skin Exam Skin: Present erythema and lesions; Absent jaundice *Routine Neurological Exam Neurological: Present alert, vision grossly intact and hearing grossly intact Routine Psychiatric Exam Psychiatric: Present anxious Assessment and Plan *Assessment and plan (1) Bacteremia due to methicillin resistant Staphylococcus aureus: Status: Acute Category: Medical Code(s): R78.81 - Bacteremia; B95.62 - Methicillin resistant Staphylococcus aureus infection as the cause of diseases classified elsewhere (2) Citrobacter infection: Status: Acute Category: Medical Code(s): A49.8 - Other bacterial infections of unspecified site (3) MRSA (methicillin resistant staph aureus) culture positive: Status: Acute Category: Medical Code(s): Z22.322 - Carrier or suspected carrier of Methicillin resistant Staphylococcus aureus (4) Abrasion of knee, left, infected: Status: Acute Category: Medical Code(s): S80.212A - Abrasion, left knee, initial encounter; L08.9 - Local infection of the skin and subcutaneous tissue, unspecified (5) Obesity: Status: Acute Category: Medical Code(s): E66.9 - Obesity, unspecified Plan skin lesion remains red/warm/oozing purulence continue iv rocephin/vancomycin
[2022-04-25 16:00] VITALS: BP 135/86; PULSE 60; RESP 12; TEMP 36.9; O2SAT 99
--- NOTE | 2022-04-25 18:19 | PC.NURSE ---
pt is more alert this afternoon. She is ambulating in jhaveri. Has required redirection multiple times due to being intrusive. She is religiously preoccupied. pulse palpable in left leg. minimal drainage. Continues to be reddened. pt denies any pain.
--- NOTE | 2022-04-25 18:36 | PC.NURSE ---
Tech note; pt ambulated to hallway and sat with staff several times, talked to family member over the phone. pt slept sporadically throughout the day and tolerated ADL well. pt requested to keep tray at 1800 SRNA check.
[2022-04-25 19:38] VITALS: BP 139/60; PULSE 102; RESP 18; TEMP 36.8; O2SAT 96
[2022-04-25 20:59] LABS: POC Glucose,Bedside 186 (70-110)
[2022-04-26 04:00] VITALS: BP 159/77; PULSE 91; RESP 18; TEMP 37; O2SAT 96
[2022-04-26 05:00] VITALS: BMI 34.7
--- NOTE | 2022-04-26 05:41 | PC.NURSE ---
No acute changes since previous assessment. Pt has rested well this shift. Lung sounds are clear. Remains on room air. ambulating independently to the bathroom. call kee within reach. bed alarm in place for pt safety.
--- NOTE | 2022-04-26 07:44 | PC.NURSE ---
report given to valeria chairez rn at this time
[2022-04-26 07:49] LABS: Basophils # 0.1 K/mm3 (0-0.2); Basophils % 0.6 % (0.1-2.0); Eosinophils % 0.3 % (0.1-12.0); Hematocrit 32.9 % (37.0-47.0); Lymphocytes # 2.5 K/mm3 (0.7-4.5); Lymphocytes % 23.4 % (10-50); Mean Corpuscular HGB Conc 33.4 g/dL (31.8-35.4); Mean Corpuscular Volume 89.9 fl (81-99); Monocytes # 0.7 K/mm3 (0.1-1.0); Monocytes % 6.9 % (1.7-9.3); Neutrophils # 7.2 K/mm3 (1.8-7.8); Neutrophils % 68.8 % (37.0-80.0); Platelet Count 403 K/mm3 (142-424); Red Blood Count 3.66 M/mm3 (4.20-5.40); Red Cell Distribution Width 13.7 % (11.5-17.5); White Blood Count 10.5 K/mm3 (4.8-10.8)
[2022-04-26 07:57] LABS: Anion Gap 11.2 mEq/L (5-15); Blood Urea Nitrogen 11 mg/dl (7-17); Calcium 9.4 mg/dl (8.4-10.2); Carbon Dioxide 24 mmol/L (22.0-30.0); Chloride 110 mmol/L (98-107); Creatinine Clearance Estimated 101 mL/min (50-200); Estimated Glomerular Filt Rate 58 ml/min (>60); GFR (African American) 70 ML/MIN (>60); Glucose 147 mg/dl (74-100); Potassium 4.2 mmoL/L (3.5-5.1); Sodium 141 mmol/L (136-145)
[2022-04-26 08:00] VITALS: BP 123/71; PULSE 89; RESP 16; TEMP 36.8; O2SAT 93
[2022-04-26 11:45] LABS: POC Glucose,Bedside 227 (70-110)
--- NOTE | 2022-04-26 14:10 | EXP.PN ---
Subjective *Date: 04/26/22 *Time: 14:10 Interval history: patient relays no significant concerns afebrile/vss wound is improving, less redness with less weepage ortho note revd Exam Data for Last 24 hours Vital signs and Labs for Last 24 Hours: Temp Pulse Resp BP Pulse Ox 98.2 F 89 16 123/71 93 L 04/26/22 08:00 04/26/22 08:00 04/26/22 08:00 04/26/22 08:00 04/26/22 08:00 Laboratory Results - last 24 hr 04/25/22 13:04: Vancomycin Peak 61.4 H* 04/25/22 20:51: POC Glucose 186 H 04/26/22 07:32: WBC 10.5, RBC 3.66 L, Hgb 11.0 L, Hct 32.9 L, MCV 89.9, MCH 30.0, MCHC 33.4, RDW 13.7, Plt Count 403, MPV 8.0, Neut % (Auto) 68.8, Lymph % (Auto) 23.4, [place] % (Auto) 6.9, Eos % (Auto) 0.3, Baso % (Auto) 0.6, Neut # (Auto) 7.2, Lymph # (Auto) 2.5, [place] # (Auto) 0.7, Eos # (Auto) 0.0, Baso # (Auto) 0.1 04/26/22 07:32: Sodium 141, Potassium 4.2, Chloride 110 H, Carbon Dioxide 24, Anion Gap 11.2, BUN 11, Creatinine 1.00, Estimated Creat Clear 101, Estimated GFR 58 L, Est GFR ( Amer) 70, Glucose 147 H, Calcium 9.4 04/26/22 11:20: POC Glucose 227 H I & O for Last 24 hours: Intake & Output 04/23/22 04/24/22 04/25/22 04/26/22 23:59 23:59 23:59 23:59 Intake Total 1210 / 1210 840 / 840 610 / 730 480 / 480 Output Total 650 / 650 0 / 0 0 / 0 0 / 0 Balance 560 / 560 840 / 840 610 / 730 480 / 480 Weight 214 lb 223 lb 11.2 oz 223 lb 11.2 oz 221 lb 9 oz Microbiology Reports for the Last 24 Hours: Microbiology 04/20/22 20:35 Blood Blood Culture - Final NO GROWTH AFTER 5 DAYS 04/23/22 11:40 Blood Blood Culture - Preliminary NO GROWTH AFTER 48 HOURS 04/23/22 11:35 Blood Blood Culture - Preliminary NO GROWTH AFTER 48 HOURS Constitutional Constitutional: no acute distress and morbidly obese *Routine HEENT Exam Head: Present normocephalic Eye: Absent conjunctival icterus ENT: Present mucous membranes moist *Routine Neck Exam Neck: Present supple *Routine Respiratory Exam Respiratory: Present CTA bilaterally; Absent accessory muscle use *Routine Cardiovascular Exam Cardiovascular: Present RRR *Routine Abdominal Exam Abdominal: Present soft and obese *Routine Extremities Exam Extremities: Present tenderness; Absent cyanosis *Routine Skin Exam Skin: Present lesions *Routine Neurological Exam Neurological: Present alert, vision grossly intact and hearing grossly intact Assessment and Plan *Assessment and plan (1) Bacteremia due to methicillin resistant Staphylococcus aureus: Status: Acute Category: Medical Code(s): R78.81 - Bacteremia; B95.62 - Methicillin resistant Staphylococcus aureus infection as the cause of diseases classified elsewhere (2) Citrobacter infection: Status: Acute Category: Medical Code(s): A49.8 - Other bacterial infections of unspecified site (3) MRSA (methicillin resistant staph aureus) culture positive: Status: Acute Category: Medical Code(s): Z22.322 - Carrier or suspected carrier of Methicillin resistant Staphylococcus aureus (4) Abrasion of knee, left, infected: Status: Acute Category: Medical Code(s): S80.212A - Abrasion, left knee, initial encounter; L08.9 - Local infection of the skin and subcutaneous tissue, unspecified (5) Obesity: Status: Acute Category: Medical Code(s): E66.9 - Obesity, unspecified Plan second bc=no growth adequate coverage for staph/citrobacter disposition to be determined w/case management
--- NOTE | 2022-04-26 15:00 | PC.NURSE ---
Spoke with Dr. Khan and he stated that if she continues to pull IV out he was fine switching her IV ABX to PO medications
[2022-04-26 16:00] VITALS: BP 144/68; PULSE 77; RESP 16; TEMP 37; O2SAT 95
--- NOTE | 2022-04-26 16:00 | PC.NURSE ---
Pt pulled out IV that was placed today
--- NOTE | 2022-04-26 16:19 | PC.NURSE ---
Paged Dr. Kent to see if he wants to switch vanc to doxy to cover blood infection or not.
--- NOTE | 2022-04-26 16:25 | PC.NURSE ---
Spoke with nightwatch to switch pt ABX to PO
[2022-04-26 16:56] LABS: POC Glucose,Bedside 204 (70-110)
[2022-04-26 19:24] VITALS: BP 148/67; PULSE 82; RESP 18; TEMP 36.5; O2SAT 94
--- NOTE | 2022-04-26 19:26 | PC.NURSE ---
Pt is a/o to self and place. She pulled out two IV today. I spoke with tiffany and he was fine switching her to PO ABX since cultures were negative. She has been on a bed alarm all shift. She had an episode where she had a sandwich in the room and tried eating it while laying flat. I heard a choking noise and had to go in there and pull her from a laying position to a sitting position and hit her back to get the piece of sandwich out of the back of her throat. I told techs she is not allowed to eat by her self. She has been in and out of room multiple times, and was directed to go back to her room. We went for a walk today around unit to try and help her with her restlessness. She has been RA and tolerated fine.
[2022-04-27 05:00] VITALS: BMI 34.7
--- NOTE | 2022-04-27 05:39 | PC.NURSE ---
NO ACUTE CHANGES SINCE PREVIOUS ASSESSMENT. LUNG SOUNDS ARE CLEAR BILATERALLY. AMBULATING INDEPENDENTLY TO THE BATHROOM. PT WAS ANXIOUS AT THE BEGINNING IF THE SHIFT ABOUT TALKING TO HER SISTER AND WHEN SHE WOULD BE GOING HOME. PT WALK INTO THE LUMBER MARKER DESK A COUPLE OF TIMES AND WAS REDIRECTED. PT PLEASANTLY CONFUSED. VSS. CALL VILLEDA WITHIN REACH. BED ALARM ON FOR PT SAFETY.
[2022-04-27 06:37] LABS: POC Glucose,Bedside 160 (70-110)
[2022-04-27 07:23] LABS: Basophils # 0.1 K/mm3 (0-0.2); Basophils % 0.7 % (0.1-2.0); Eosinophils # 0.1 K/mm3 (0.0-0.4); Eosinophils % 0.9 % (0.1-12.0); Hematocrit 32.1 % (37.0-47.0); Hemoglobin 11.1 g/dL (12.2-16.2); Lymphocytes # 2.1 K/mm3 (0.7-4.5); Lymphocytes % 26.8 % (10-50); Mean Corpuscular HGB Conc 34.7 g/dL (31.8-35.4); Mean Corpuscular Hemoglobin 30.7 pg (27.0-31.2); Mean Corpuscular Volume 88.4 fl (81-99); Mean Platelet Volume 9.4 fl (7.4-10.4); Monocytes # 0.8 K/mm3 (0.1-1.0); Monocytes % 9.7 % (1.7-9.3); Neutrophils # 4.9 K/mm3 (1.8-7.8); Neutrophils % 61.9 % (37.0-80.0); Platelet Count 307 K/mm3 (142-424); Red Blood Count 3.63 M/mm3 (4.20-5.40); Red Cell Distribution Width 13.8 % (11.5-17.5); White Blood Count 7.9 K/mm3 (4.8-10.8)
[2022-04-27 07:49] LABS: Anion Gap 12.6 mEq/L (5-15); Blood Urea Nitrogen 14 mg/dl (7-17); Calcium 9.6 mg/dl (8.4-10.2); Carbon Dioxide 22 mmol/L (22.0-30.0); Chloride 109 mmol/L (98-107); Creatinine Clearance Estimated 101 mL/min (50-200); Estimated Glomerular Filt Rate 58 ml/min (>60); GFR (African American) 70 ML/MIN (>60); Glucose 159 mg/dl (74-100); Potassium 4.6 mmoL/L (3.5-5.1); Sodium 139 mmol/L (136-145)
[2022-04-27 08:00] VITALS: BP 133/69; PULSE 83; RESP 18; TEMP 36.7; O2SAT 93
[2022-04-27 11:55] LABS: POC Glucose,Bedside 175 (70-110)
--- NOTE | 2022-04-27 12:56 | EXP.DC.SUM ---
General Admission date:: 04/21/22 Discharge date: 04/27/22 HPI HPI HPI: 56-year-old female patient presenting to the [facility] emergency department from [facility]. They reported their altered mental status. In the emergency department white blood cell count 19.9, heart rate 125, temperature 103.5, and urinalysis revealing 1+ leukocytes and 4+ bacteria. Patient lying in bed now pleasantly confused, and stating I feel good. There is a large scabbed wound to her left knee which is red, warm, edematous. CT of the abdomen pelvis revealed air within the urinary bladder possibly due to recent catheterization or gas-forming bacteria. Mucosal thickening in the bladder suggesting chronic infectious or interstitial cystitis with malignancy to be excluded follow-up cystoscopy is recommended. Urology consulted Hospital Course Hospital Course Hospital Course: pt has did well with iv abx - pt was seen -by urology-patient is a 56-year-old white female who is a resident of [facility].? She presented to the emergency room yesterday with altered mental status.? She was evaluated and admitted due to the high temperature of 103.5.? Her pulse rate was 125.? Her white count was 19.9 and her creatinine was 1.6.? Her urinalysis showed 1+ leukocytes and 4+ bacteria.? Urine culture is currently pending.? Her hemoglobin A1c was 6.4.? CT scan was obtained which showed normal kidneys and ureters.? There was air within the urinary bladder and excessive stool within the transverse and right hemicolon.? A Roblero catheter was removed last evening.? The nurse reports that she has been voiding adela urine with a good stream.? She is currently on antibiotics.? Her white count did improve to 16.5 today.? The radiologist also thought there was some mucosal thickening in the urinary bladder suggesting chronic infectious or interstitial cystitis or malignant etiology.? She was noted to be febrile and 4+ bacteria in her urine with elevated white count.? Urine culture is pending and patient on antibiotics at present.? Her urine is reported as adela and her catheter is out and she is voiding without difficulty.? CT findings certainly suggest an inflammatory process.? Recommend full course of antibiotics for the urinary tract infection and follow-up with urology in 2 weeks for reassessment of the urine. pt was also seen by ortho - Assessment and plan (1) Abrasion of knee, left, infected: ?Status:?Acute ?Category:?Medical ?Code(s): S80.212A - Abrasion, left knee, initial encounter; L08.9 - Local infection of the skin and subcutaneous tissue, unspecified Plan She is currently on IV antibiotics.? Also being treated for UTI.? The area of erythema marked around the knee will monitor for clinical improvement.? Currently there is no effusion in the knee which would indicate intra-articular infection.? Cellulitis changes adjacent to the joint can spread to the intra-articular aspect of the knee.? Continue with IV antibiotics.? Monitor CRP for improvement.? If there is evidence of intra-articular involvement would require irrigation and debridement.? Otherwise appropriate to continue with conservative treatment wound care management IV antibiotics. pt has did better and will be d/c on po abx and followed as op - has improved labs and has lt knee culture showing staph aureus and uti showing citrobacter Exam Data for Last 24 hours Vital signs and Labs for Last 24 Hours: Temp Pulse Resp BP Pulse Ox 98.1 F 83 18 133/69 93 L 04/27/22 08:00 04/27/22 08:00 04/27/22 08:00 04/27/22 08:00 04/27/22 08:00 Laboratory Results - last 24 hr 04/26/22 16:46: POC Glucose 204 H 04/27/22 06:30: POC Glucose 160 H 04/27/22 07:10: WBC 7.9, RBC 3.63 L, Hgb 11.1 L, Hct 32.1 L, MCV 88.4, MCH 30.7, MCHC 34.7, RDW 13.8, Plt Count 307, MPV 9.4, Neut % (Auto) 61.9, Lymph % (Auto) 26.8, [place] % (Auto) 9.7 H, Eos % (Auto) 0.9, Baso % (Auto) 0.7, Neut # (Auto)
--- NOTE | 2022-04-27 14:39 | PC.NURSE ---
PT WILL BE DISCHARGED BACK TO [facility] WITH CEFDINIR AND DOXYCYCLINE. PT HAS BEEN UP AMBULATING IN THE UP. HAS TALKED TO SISTER ON THE PHONE 2X THIS SHIFT. AREA TO THE LEFT KNEE WAS CLEANED WITH HIBICLENS AND A BAND AIDE WAS APPLIED. PT'S SISTER AND [facility] STAFF WAS NOTIFIED ABOUT DISCHARGE.
--- NOTE | 2022-04-28 13:34 | CARE MANAGER ---
Attempted post-discharge phone interview, no answer at [facility].
== END 2022-04-27 14:46 | disposition home or self-care (01) | DRG 690 ==
LOC: ER 20:04 → 2ND 23:19
PROVIDERS: Nurse Practitioner Family; Orthopaedic Surgery; Admitting Provider Emergency Medicine; Emergency Provider Emergency Medicine; PCP Emergency Medicine; Visit Provider Emergency Medicine
DX: N39.0 Urinary tract infection, site not specified (principal); L03.116 Cellulitis of left lower limb; E11.9 Type 2 diabetes mellitus without complications; E66.9 Obesity, unspecified; F31.9 Bipolar disorder, unspecified; Z68.34 Body mass index [BMI] 34.0-34.9, adult; F17.200 Nicotine dependence, unspecified, uncomplicated; Z79.4 Long term (current) use of insulin; S80.212A Abrasion, left knee, initial encounter; Z22.322 Carrier or suspected carrier of Methicillin resistant Staphylococcus aureus; B95.62 Methicillin resistant Staphylococcus aureus infection as the cause of diseases classified elsewhere
CPT/HCPCS: 36415; 51702; 70450; 71045; 74177; 80048; 80053; 80061; 80178; 80202; 81001; 82140; 82962; 83036; 83605; 83735; 84484; 85007; 85025; 86140; 87040; 87070; 87077; 87086; 87088; 87186; 87205; 93005; 93306; 97162; 97166; 99285; C9803; J0696; Q9967; U0003; U0005

== ENCOUNTER 2022-04-29 20:33 | Emergency (ER) | payer BC, SELFPAY ==
[2022-04-29 20:33] VITALS: BP 0/0; PULSE 0; RESP 20; TEMP 34.9; O2SAT 0; BMI 22.8
--- NOTE | 2022-04-29 20:40 | PC.NURSE ---
phone call to Reinier Stoddard, he is contacting
--- NOTE | 2022-04-29 20:59 | PC.NURSE ---
PC from Franklyn Stoddard, we are to contact him when family arrives
--- NOTE | 2022-04-29 22:08 | PC.NURSE ---
@ 2152 - Called and s/w [facility]. Case # [id number]. Robot Operator has not ruled out pt yet.
--- NOTE | 2022-04-29 22:22 | PC.NURSE ---
PC from Loulou Sharma at [facility], she stated we thought she was choking there was an aide there when she went down and they lost a pulse
--- NOTE | 2022-04-29 22:41 | HMH.EDCPR ---
Discharge Plan Disposition Patient Disposition: Chief Complaint: Cardiac Arrest/CPR Prescriptions Prescriptions: No Action lorazepam [Ativan] 0.5 mg tablet 0.5 mg PO BID Qty: 60 5RF (DME) lancets [OneTouch Delica Plus Lancet] 33 gauge misc See Rx Instructions .Route Qty: 100 12RF Rx Instructions: As directed (DME) OneTouch Ultra Test Strip See Rx Instructions .Route Qty: 100 12RF Rx Instructions: As directed metformin 500 mg tablet 500 mg PO DAILY lithium carbonate 150 mg capsule 150 mg PO BID amlodipine [Norvasc] 5 mg tablet 5 mg PO DAILY cyanocobalamin (vitamin B-12) 500 mcg tablet 500 mcg PO DAILY trazodone 100 mg tablet 100 mg PO HS fluvoxamine 100 mg tablet 100 mg PO TID haloperidol 10 mg tablet 10 mg PO TID benztropine 1 mg tablet 1 mg PO DAILY benztropine 2 mg tablet 2 mg PO HS ergocalciferol (vitamin D2) [Vitamin D2] 1,250 mcg (50,000 unit) capsule 50,000 unit PO WEEKLY olanzapine 20 mg tablet 20 mg PO HS loratadine [Claritin] 10 mg tablet 10 mg PO DAILY glipizide 5 mg tablet 5 mg PO BID omega-3 fatty acids Capsule 2,000 mg PO BID metoprolol tartrate 25 mg tablet 25 mg PO BID melatonin 10 mg Capsule 10 mg PO HS PRN (Reason: Sleep) Trulicity 1.5 mg/0.5 mL pen injector 1.5 mg SQ WEEKLY cefdinir 300 mg capsule 300 mg PO BID 12 Days Qty: 24 0RF doxycycline hyclate 100 mg Tablet 100 mg PO BID Qty: 14 0RF Referrals Follow up/Referrals: Tyler Avilez MD [Primary Care Provider] - See instructions Clinical Impressions Clinical Impression: Acute airway obstruction, Cardiac arrest Discharge ED Provider: Tyler Avilez CPR HPI General Chief Complaint: Cardiac Arrest/CPR Stated Complaint: cardiac arrest Time Seen by Provider: 04/29/22 20:35 Mode of Arrival: EMS Source of Information: EMS and Medical Record Limitations: Altered Mental Status Description of Symptoms (Recalled from ER Triage Doc. by RN): Per facility staff, they called for EMS d/t pt had choked and then began seizing and then had no heartbeat . Facility staff did not start CPR. Fire Depart arrive @ 2006 and began CPR. EMS arrived @ 2007 and continued CPR. EMS had removed food bolus from trachea and intubated [facility]. No IV in place. No meds given [facility]. History of Present Illness HPI narrative: reported as choking episode at skilled nursing and ems reported pt apneic and cyanosis and food removed from airway at time of intubation MD complaint: other (choking episode) Known history of: other (diabetes ) Associated injuries: No Related Data Home Medications Medication Instructions Recorded Confirmed amlodipine 5 mg tablet (Norvasc) 5 mg PO DAILY blood pressure 04/21/22 04/21/22 benztropine 1 mg tablet 1 mg PO DAILY Tremors 04/21/22 04/21/22 benztropine 2 mg tablet 2 mg PO HS Tremors 04/21/22 04/21/22 cyanocobalamin (vitamin B-12) 500 500 mcg PO DAILY Supplement 04/21/22 04/21/22 mcg tablet dulaglutide 1.5 mg/0.5 mL 1.5 mg SQ WEEKLY Diabetes 04/21/22 04/21/22 subcutaneous pen injector (Trulicity) ergocalciferol (vitamin D2) 1,250 50,000 unit PO WEEKLY Supplement 04/21/22 04/21/22 mcg (50,000 unit) capsule (Vitamin D2) fluvoxamine 100 mg tablet 100 mg PO TID ocd/depression 04/21/22 04/21/22 glipizide 5 mg tablet 5 mg PO BID Diabetes 04/21/22 04/21/22 haloperidol 10 mg tablet 10 mg PO TID depression/behavior 04/21/22 04/21/22 lithium carbonate 150 mg capsule 150 mg PO BID mood 04/21/22 04/21/22 loratadine 10 mg tablet (Claritin) 10 mg PO DAILY Allergy symptoms 04/21/22 04/21/22 melatonin 10 mg capsule 10 mg PO HS PRN Sleep 04/21/22 04/21/22 metformin 500 mg tablet 500 mg PO DAILY Diabetes 04/21/22 04/21/22 metoprolol tartrate 25 mg tablet 25 mg PO BID blood pressure 04/21/22 04/21/22 olanzapine 20 mg tablet 20 mg PO HS mood 04/21/22 04/21/22 omega-3 fatty acids 2,
--- NOTE | 2022-04-30 00:09 | PC.NURSE ---
Arvind with [facility] called back, notified that certified midwife ruled pt out and family had been a t bedside. They will reach out to her.
--- NOTE | 2022-04-30 00:10 | PC.NURSE ---
Elliot Stoddard has collected the pt and to transport to home
--- NOTE | 2022-04-30 01:45 | PC.NURSE ---
Late Entry: Code flow note @2004- EMS toned out to kai bernsteinkendra regarding a 56 year old female that appeared to be choking, fell to the floor and seized, and now does not have a heart beat. Caller refuses to begin CPR. Per EMS, fire department arrived 2006 and started BLS and [facility] arrived @ 2007 to [facility] where they continued CPR and started ACLS. @2025- [facility] arrived at ER bay, receiving report that pt was intubated with 6.5 ETT after food bolus removed from trachea and received 1 shock en route to [facility]. Phani Saldana took over CPR while transporting into room 3 @2026-pt in room, moved to ER stretcher and pads changed to [facility] defib pads and placed on monitor. asystole noted, no pulse detected. resumed cpr. Resp therapist giving o2 via ETT with bag-mask and 100% o2. @2027- Color change co2 detector had good color change and equal chest rise. attempting to started IV to LUE @2028- changed cpr administrators, checked pulse and rhythm, continues to be asystole on monitor and no pulses detected at carotid or femoral. Gave 1 mg Epi via ETT. @2029- no success with PIV to LUE, attempting to RUE. @2030- rotated cpr givers, no pulse detected and continued asystole. Continued CPR @2031- 2nd dose of epi 1mg given via ETT. @2032- no pulse detected to carotid or femoral sites. changed compressors and resumed CPR. @2034- continued to have no pulse or shockable rhythm. Pupils fixed & dilated. stated to terminate cpr and called TOD at this time.
[2022-04-30 02:32] VITALS: BP 0/0; PULSE 0; RESP 0; TEMP -17.7; TEMP 0
== END 2022-04-29 20:35 | disposition expired ==
PROVIDERS: Emergency Provider Emergency Medicine; PCP Emergency Medicine
DX: I46.9 Cardiac arrest, cause unspecified (principal); T17.920A Food in respiratory tract, part unspecified causing asphyxiation, initial encounter; Z79.899 Other long term (current) drug therapy; Z22.322 Carrier or suspected carrier of Methicillin resistant Staphylococcus aureus; E11.9 Type 2 diabetes mellitus without complications; F32.A Depression, unspecified; F31.9 Bipolar disorder, unspecified
CPT/HCPCS: 31500; 92950; 99284